=== PATIENT | male | born 1945 | race Caucasian/White ===

== ENCOUNTER 2024-11-24 14:40 | Outpatient (REF) | payer MEDICARE, SELFPAY ==
--- OUTSIDE RECORDS SUMMARY | 2024-11-24 18:05 | XMS_ITS | Encounter Summary ---
Author Name [facility] [place] [facility] [place] Address [address] [place] [address] Care Team Providers Care Airplane Electrician Name Role Phone NATHANIEL SEWELL Primary Care Provider Unavailcourtney e Insurance Providers: All historical and current Section Date Range: From patient's date of to the date document was created. This section includes the names of all active insurance providers for the patient. Insurance Provider Type of Coverage Plan Name Start of Policy Coverage End of Policy Coverage Group Number Member ID Insurance Provider's Telephone Number Policy [place]'s Name Patient's Relationship to Policy [place] MEDICARE (WNR) MEDICARE (M) PART A May 22, 2009 PART A [id number] [id number] [place] PAT[place] MEDICARE (WNR) MEDICARE (M) PART B May 22, 2009 PART B [id number] [id number] [place] PAT[place] Selected Encounter This section includes the information on record at CT for the Encounter. Date/Time Encounter Type Encounter Description Reason Provider Source Mar 08, 2024 09:30 AM COMPRE OPH EXAM NEW PT 1/> OPTOMETRY ICD-10-CM H25.813 Combined forms of age-related cataract, bilateral JULIETKENJI EVANGELISTA E IHE Encounter Template Text not used by VA Assessments - Encounter Diagnoses This section includes the primary and secondary diagnoses documented for the Encounter. Date/Time Primary/Secondary Diagnosis Diagnosis Name Provider Source Mar 08, 2024 03:17 PM PRIMARY Combined forms of age-related cataract, bilateral [facility] Mar 08, 2024 03:17 PM SECONDARY Nexdtve age-related mclr degn, bilateral, intermed dry stage KENJI CHUNG [facility] [place] [facility] Mar 08, 2024 03:17 PM SECONDARY Posterior subcapsular polar age-related cataract, bilateral [facility] Plan of Treatment: Future Appointments (+ 6 months) and Future Tests (+/- 45 days) The Plan of Treatment section includes future care activities for the patient from all CT treatmentfacilities. This section includes future appointments and future orders which are active, pending or scheduled. Future Appointments This section includes appointments that were scheduled to occur 6 months from the date of the Encounter, up to a maximum of 20 appointments. The data comes from all CT treatment facilities. Appointment Date/Time Appointment Type Appointme nt Facility Name Jun 16, 2024 08:30 AM [facility]UL[facility] Aug 05, 2024 08:30 AM [facility] Social History: Smoking Status (Most current) and Tobacco Use (All prior to encounter date) This section includes the most current, and the historical, smoking and tobacco- related health factors from the CT facility where the Encounter took place. Current Smoking Status This section includes the most current smoking, or tobacco-related health factor, from the CT facility where the Encounter took place. Date/Time Current Smoking Status Comment Facil ity Jun 16, 2023 10:13 AM VA-TOBACCO FORMER USER [facility] Tobacco Use History This section includes a history of the smoking, or tobacco-related health factors, that were collected on or before the date of the Encounter. The data comes from the CT facility where the Encounter took place. Date/Time Smoking Status/Tobacco Use Comment F acility Jun 16, 2023 10:[address]-TOBACCO QUIT 15 YRS OR MORE [facility] Encounter Notes: All associated encounter notes This section contains the clinical notes associated to the Encounter. Date/Time Encounter Note(s) Provider Source Mar 08, 2024 03:14 PM OPTOMETRY NOTE: LOCAL TITLE: OPTOMETRY NOTE STANDARD TITLE: OPTOMETRY NOTE DATE OF NOTE: MAR 08, 2024@15:14 ENTRY DATE: MAR 08, 2024@15:14:47 AUTHOR: AMISH CHUNG COSIGNER: URGENCY: STATUS: COMPLETED I saw this patient in conjunction with the student and agree with the stated findings and plan as noted below after reviewing both the history and repeating mendez elements of the physical exam now. Patient previously followed by Dr. Babin at [facility] presents today for comprehensive eye examination. He has a history of bilateral cataracts as well as macular degeneration for which he is taking AREDS 2 twice a day by mouth. 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 Update glasses today. Bilateral intermediate macular degeneration characterized by confluent drusen without evidence of subretinal fluid, subretinal blood, exudate or thickening either eye. Continue AREDS 2 twice a day by mouth. Plan: Patient education as noted above ordered new glasses today. Order ocular supplements for mail out AREDS two 1 capsule twice a day by mouth. Return in 12 months or sooner if need be. Ophthalmic medication reconciliation: The patient is prescribed AREDS two 1 capsule twice a day by mouth. Medication Reconciliation: Outpatient: Has the patient been taking medications as documented in the EMLR? YES: The patient has been taking medications as documented in the EMLR. Essential Medication List for Review used to complete this medication reconciliation. INCLUDED IN THIS LIST: Alphabetical list of active outpatient prescriptions dispensed from this VA (local) and dispensed from another VA or DoD facility (remote) as well as inpatient orders (local, pending and active), local clinic medications, locally documented non-VA medications, and local prescriptions that have or been discontinued in the past 90 days. - All changes in medications, including all non-VA/Herbal/OTC medications were entered into CPRS. Changes: AREDS two 1 capsule twice a day by mouth. - If there were any medications the patient should no longer take, they were discontinued. - The patient/caregiver was instructed to update this list, discard old lists, and take this list to the next appointment, whether with a VA or non-VA provider. JLV Link Data on this list may not be complete. Please check JLV. Allergies/ADRs (Tool #5) FACILITY ALLERGY/ADR -------- No Remote Allergy/ADR Data available for this patient [facility] No Known Allergies Med [facility] (Tool #1) INCLUDED IN THIS LIST: Alphabetical list of active outpatient prescriptions dispensed from this CT (local) and dispensed from another CT or [facility] facility (remote) as well as inpatient orders (local pending and active), local clinic medications, locally documented non-VA medications, and local prescriptions that have or been discontinued in the past 90 days. Non-VA Meds Last Documented On: Jun 16, 2023 NOTE The display of VA prescriptions dispensed from another CT or [facility]D facility (remote) is limited to active outpatient prescription entries matched to National Drug File at the originating site and may not include some items such as investigational drugs, compounds, etc. NOT INCLUDED IN THIS LIST: Medications self-entered by the patient into personal health records (i.e. [employer]) are NOT included in this list. Non-VA medications documented outside this CT, remote inpatient orders (regardless of status) and remote clinic medications are NOT included in this list. The patient and provider must always discuss medications the patient is taking, regardless of where the medication was dispensed or obtained. Non-VA LEVOTHYROXINE NA (SYNTHROID) TAB TAKE BY MOUTH EVERY MORNING 30 MINUTES BEFORE BREAKFAST Indication: FOR THYROID Non-VA LORATADINE 10MG TAB TAKE ONE TABLET BY MOUTH ONCE DAILY Indication: FOR ALLERGY Non-VA MULTIVITAMIN/MINERALS CAP/TAB TAKE ONE TABLET BY MOUTH EVERY MORNING 30 MINUTES BEFORE BREAKFAST Non-VA SILDENAFIL CITRATE 50MG TAB TAKE ONE TABLET BY MOUTH NEEDED Indication: FOR ERECTILE DYSFUNCTION SUPPLIES Declines printed copy of medication list now. /neli/ Amish Chung OD CHIEF OF OPTOMETRY Signed: 03/08/2024 15:19 AMISH CHUNG [facility] [place] [facility] Mar 08, 2024 09:26 AM OPTOMETRY NOTE: LOCAL TITLE: OPTOMETRY NOTE STANDARD TITLE: OPTOMETRY NOTE DATE OF NOTE: MAR 08, 2024@09:26 ENTRY DATE: MAR 08, 2024@09:26:11 AUTHOR: HE ANTHONY EXP COSIGNER: AMISH CHUNG URGENCY: STATUS: COMPLETED Active problems - Computerized Problem List is the source for the followin. Mild cognitive impairment 2. Hypothyroidism Active Outpatient Medications (including Supplies): Active Non-VA Medications Status 1) Non-VA LEVOTHYROXINE NA (SYNTHROID) TAB BY MOUTH ACTIVE 2) Non-VA LORATADINE 10MG TAB 10MG BY MOUTH ONCE DAILY ACTIVE 3) Non-VA MULTIVITAMIN/MINERALS CAP/TAB 1 TABLET BY ACTIVE MOUTH EVERY MORNING 30 MINUTES BEFORE BREAKFAST 4) Non-VA SILDENAFIL CITRATE 50MG TAB 50MG BY MOUTH ACTIVE NEEDED Allergies: Patient has answered NKA All medications including those prescribed by outside VA's, community providers, and all OTC meds were reviewed and reconciled with patient to the best of their abilities. This 78 year old MALE is seen today for CEE - [facility] Babin at [facility], he's been seeing them annually for 5-6 yrs Chief Complaint: -Pt reports that he's using +3.25 OTC readers. He was previously using PALs but broke those. -Pt was seeing Dr. Babin for routine eye care. He was not being followed for any disease that he's aware of, other than the start of cataracts. He does the side vision test periodically with them and he does plan to continue seeing them annually. He also has a consult with them on March 14 for cataract surgery. -Pt says that ~1 yr ago he saw a red spot in his vision that he noticed when he woke up and would last about 5 mins. This happened daily for a few weeks and has since gone away. He brought this up at his [facility] and they didn't find anything concerning to explain the symptom. -Pt reports burning and tearing OU when watching tv. Pt denies use of ATs or warm compress. OHx: -Cataracts -AMD OU -RE OU (-) Pain: (-) VASQUEZ: (-) Diplopia: (+) Flashes: occassional (+) Floaters: occassional, longstanding (-) Amaurosis Fugax/Tia's: (-) Eye Injury: (-) Eye Surgery: (-) TBI FOHx: (-) Glaucoma/ARMD/Blindness (-) Smoker/Length of Time/PPD: VITALS (most recent, as listed in the electronic record): B/P: 128/66 (08/04/2023 08:08) Pulse: 61 (08/04/2023 08:08) Temperature: 97.8 F [36.6 C] (08/04/2023 08:08) Weight: 191 lb [86.64 kg] (08/04/2023 08:08) Height: BMI: BMI: PERTINENT LABS: HEMOGLOBIN A1C TREND No data available Current Rx with last BCVA: OD: OS: Add: -Pt lost current rx from outside provider [facility] ( x )sc ( )cc OD: 20/30+1 OS: 20/25+1 Pupils: PERRL (-)APD EOMs: SAFE OU, (-)Pain/Diplopia CVF (facial, peripheral): FTFC OU Autorefraction: OD: -0.50 -1.50 x085 20/30+1 OS: +0.50 -1.50 x079 20/25+1 Subjective Refraction: OD: -0.25 -0.75 x085 20/30+1 OS: +0.75 -1.00 x080 20/25+1 Add: +2.75 -Order rx s/p CE OU All the above performed by student, reviewed by attending Anterior segment: Performed by student, repeated by attending Lids: mild MGD OU, trace bleph OU Conj: white and quiet OU Cornea: arcus 360 OU AC: deep and quiet OU Iris: flat and clear OU, (-)NVI/TID OU Lens: -OD 2+ NS, 2+ ACC, 1+ psc -OS 1+ NS, 1+ ACC, trace psc Tonometry: Performed by student, reviewed by attending OD 15 mmHg OS 15 mmHg Time: 9:56am Fundus exam: Dilated: 9:58am Dilating Drops: 1GTT 1 % Tropicamide OU & 1GTT 2.5% Phenylephrine OU (Pt. ed. on side effects, dilation warning given and verbal consent obtained) Patient advised not to drive if they feel they have any symptoms which could affect their ability to drive safely. Patient advised not to engage in any activities which could put themselves or others at risk if they feel they have any symptoms which could affect their ability to perform those activities safely. Performed by student, repeated by attending Vit: PVD OU C/D: (-)notching/drance heme/NVD OU -OD: 0.40 -OS: 0.35 Macula: soft confluent drusen OD>OS, (-)SRF/IRF OU,(-)CSME OU PPole: clear, (-)NVE/DBH/CWS/ILANA/exudate s OU A/V: 2/3, (-)venous tortuosity OU Vessels: normal caliber OU Periph: flat and intact, (-)holes, tears, detachments 360 OU, (-)NVE OU Assessment/Plan: 1. Intermediate non-exudative macular degeneration OU - Pt ed on today's findings. Ed on pathophysiology of AMD and visual consequences of disease. - Corrected visual acuity is stable. Pt advised to continue use of HAG and call immediately if noticing any sudden changes in vision. - Advised to continue use of AREDS 2 BID. Monitor annually. 2. Combined Cataracts OU - visually significant OU - Pt ed on today's findings and importance of UV protection. - Pt advised to keep appt for cataract surgery consult next week. - Monitor annually. 3. Regular Astigmatism and Presbyopia OU - New spec rx written for FTW. Deferred ordering glasses today until after cataract surgery. Pt advised to call if he decides not to have the surgery and we will have him come back to pick out glasses. - Monitor annually Return to Clinic 1 yr or sooner prn. Patient Education: Macular Degeneration: Patient was educated regarding macular degeneration including both wet and dry varieties as well as the natural history and prognosis of this condition. Education included the role of amsler grid testing , ocular nutraceutical therapy as well as diet and healthy lifestyle choices when applicable. Exclusion criteria includes extremely reduced acuity or cognitive decline for amsler grid testing and other coexisting systemic contraindication for supplements, diet and exercise. /neli/ HE ANTHONY OPTOMETRY STUDENT Signed: 03/08/2024 17:26 /neli/ Amish Chung OD CHIEF OF OPTOMETRY Cosigned: 03/09/2024 13:43 HE ANTHONY CN[facility]L [facility]
--- OUTSIDE RECORDS SUMMARY | 2024-11-24 18:05 | XMS_ITS ---
Author Name [facility] [place] [facility] [place] [facility] [place] Address [address] [place] [address] Care Team Providers Care Care Worker Name Role Phone NATHANIEL SEWELL Primary Care Provider Yg montoya Insurance Providers: All historical and current Section [...] PART A May 22, 2009 PART A [id number] EX19 [place] PATIENT MEDICARE (WNR) MEDICARE (M) PART B May 22, 2009 PART B [id number] EX19 [place] PAT[place] Selected Encounter This section includes the information on record at [place] for the Encounter. Date/Time Encounter Type Encounter Description Reason Pro vider Source Nov 24, 2024 10:24 AM Outpatient Encounter TELEPHONE TRIAGE IHE Encounter Template Text not used by VA Plan of Treatment: Future Appointments (+ 6 months) and Future Tests (+/- 45 days) The Plan of Treatment section includes future care activities for the patient from all VA treatmentfacilities. This section includes future appointments and future orders which are active, pending or scheduled. Future Appointments This section includes appointments that were scheduled to occur 6 months from the date of the Encounter, up to a maximum of 20 appointments. The data comes from all [place] treatment facilities. Appointment Date/Time Appointment Type Appointme nt Facility Name Nov 29, 2024 09:00 AM AMBULATORY - MEDICINE [facility] Social History: Smoking Status (Most current) and Tobacco Use (All prior to encounter date) This section includes the most current, and the historical, smoking and tobacco- related health factors from the [place] facility where the Encounter took place. Current Smoking Status This section includes the most current smoking, or tobacco-related health factor, from the [place] facility where the Encounter took place. Date/Time Current Smoking Status Comment Facil ity Aug 05, 2024 08:30 AM PA-TOBACCO FORMER USER [facility] Tobacco Use History This section includes a history of the smoking, or tobacco-related health factors, that were collected on or before the date of the Encounter. The data comes from the [place] facility where the Encounter took place. Date/Time Smoking Status/Tobacco Use Comment F acility Aug 05, 2024 08:30 AM VA-TOBACCO QUIT [facility]RS [facility] Jun 16, 2023 10:13 AM VA-TOBACCO [facility] Jun 16, 2023 10:13 AM PA-TOBACCO QUIT 15 YRS OR MORE [facility] Encounter Notes: All associated encounter notes This section contains the clinical notes associated to the Encounter. Date/Time Encounter Note(s) Provider Source Nov 24, 2024 10:24 AM RN PROGRESS NOTE: LOCAL TITLE: CCC: CLINICAL TRIAGE STANDARD TITLE: RN PROGRESS NOTE DATE OF NOTE: NOV 24, 2024@10:24:54 ENTRY DATE: NOV 24, 2024@10:24:55 AUTHOR: MARANDA FELICIANO COSIGNER: URGENCY: STATUS: COMPLETED Patient Demographics Patient Name: HELEN KAYE Patient Primary Address: [address] [place] [id number] Patient Primary Phone: [phone] Patient : 1945 Patient Age: 79 Caller/Recipient Relation to Patient: Self Caller Name: HELEN KAYE Emergency Contact: SANDI KAYE Triage Summary Chief Complaint: Eye Irritation System WHEN: Within 2 Weeks Nurse's Recommendation / WHEN: Within 2 Weeks System WHERE: Clinic Nurse's Recommendation / WHERE: Clinic/[facility] Nursing Plan and Disposition Referred Patient for In-Person Appt Transferred patient to Sched & Admin-Apt Other course(s) of action Generated msg to PACT/Provider Nurse Summary Nurse Summary: States I would like to see an eye doctor, My eye is watery, and feeling like there is something in the left eye. This has been going on half a year . States burning sensation in the evening. SEE ROS. Warm transferred to specialty clinic, advise per triage, pt needs f2f appt within 1-2 weeks. Clinical Contact Center Codes Clinic/Location: V1 CWM PHONE CCC RN Decision Support System Output: Triage Complete Triage Date: 11/24/2024, 10:19 AM Triage Note: Decision Support Tool Used: TXCC Phone Triage Cleo, 24 Nov 2024 15:17:39 +0000 [facility] Demographics 79 y/o Male Results CC: Eye Irritation Software suggested: Within 2 Weeks Software suggested follow-up location: Clinic, consider [facility] care Values and Measures Duration of CC: 6 Months Positive Responses HPI: eyelid drainage, exudative HPI: symptoms, worsening Negative Responses Denies: HPI: eye discharge, exudative Denies: HPI: eye pain Denies: HPI: eye redness Denies: HPI: eyelid erythema Denies: HPI: eyelid swelling Denies: HPI: scaly skin, eyelid IMPORTANT: This note was created by [facility] Clinical Contact Center staff. Please do not alert the staff member by adding them as a signer for future communications. Alerts are not monitored by this user. /neli/ MARANDA FELICIANO RN-BSN REGISTERED NURSE Signed: 11/24/2024 10:24 Receipt Acknowledged By: 11/24/2024 11:12 /neli/ Maria A Willingham RN, BSN Primary Care 11/24/2024 13:30 /neli/ AIDAN GRACE LPN, [facility]
--- OUTSIDE RECORDS SUMMARY | 2024-11-24 18:05 | XMS_ITS | Encounter Summary ---
Author Organization [employer] Address [address] [place] [address] Care Team Providers Care Establishment Guide Name Role Phone Rachael Velasco Primary Care Provider [phone] Encounter Details Date Type Department Care Team (Late st Contact Info) Description 11/02/2024 Telephone Sunday [facility] [address] [place] [address] Rachael Velasco FNP [address] [place] [address] Social History Tobacco Use Types Packs/Day Years Used Date Smoking Tobacco: Former Cigarettes Q uit: 1993 Smokeless Tobacco: Never Alcohol Use Standard Drinks/Week Comments Yes 0 (1 standard drink = 0.6 oz pur e alcohol) 2 a day Housing Stability Answer Date Recorded What is your housing situation today? I have aravind patel 07/29/[address] you li ve. Do you have problems with any of the following? None of the above 07/29/2024 Food Insecurity Answer Date Recorded Within the past 12 months, y ou worried that your food would run out before you got money to buy more: Never True 07/29/2024 Within the past 12 months,th e food you bought just didn't last and you didn't have enough money to get more: Never True 04/2024 Transportation Answer Date Recorded In the past 12 months, has l ack of transportation kept you from medical appts, meetings, work or from getting things needed for daily living? No 07/29/2024 Utilities Answer Date Recorded In the past 12 months, has t he [employer], oil or water [employer] threatened to shut off services in your home? No 07/29/2024 Depression Answer Date Recorded Patient Health Questionnaire-2 Score 1 04/27/2024 Internet Access Answer Date Recorded Internet Access Q1 Yes 07/29/2024 Internet Access Q2 Not on file 07/29/2024 Sex and Gender Information Value Date Recorded Sex Assigned at Male 09/02/2022 11:08 AM EST Legal Sex Male 5:34 PM EDT Gender Identity Male 09/02/2022 11:08 AM EST Sexual Orientation Straight 10/26/2023 9: 33 AM EST Occupation Industry Job Start Date Job End Date Not on file Not on file Not on file Not on file documented as of this encounter Miscellaneous Notes * Telephone Encounter - Cassi Owens LPN - 11/02/2024 2:50 PM EST Signed order faxed to number provided. Alyssia notified. * Telephone Encounter - Cassi Owens LPN - 11/02/2024 2:46 PM EST Images from the original note were not included. Jody Jansen Signed 2:20 PM Copy Alyssia ([facility]) called stating patient is with her trying to get blood work done and they are requesting patient's provider's signature on labs in order to move forward called, Culture for Aerobicbacteria, order code: [id number]. Alyssia states she needs the order with the provider's signature faxed over to [facility] - Fax number: [phone]. Alyssia states she would like a call back once the order has been signed and faxed over at phone number: [phone]. Alyssia states she won't be able to get a voicemail left on the number. Thank you! documented in this encounter Plan of Treatment Not on file documented as of this encounter Visit Diagnoses Not on filedocumented in this encounter Care Teams Establishment Guide Relationship Specialty Start Date End Date Rachael Velasco FNP [address] [place] [address] PCP - General Family Medicine 09/03/22 documented as of this encounter
--- OUTSIDE RECORDS SUMMARY | 2024-11-24 18:05 | XMS_ITS | Encounter Summary ---
Author Name [facility] [place] [facility] [place] [facility] [place] Address [address] [place] [address] Care Team Providers Care Salesperson Driver Name Role Phone NATHANIEL SEWELL Primary Care [...] PART A May 22, 2009 PART A [id number] [facility] PATIENT MEDICARE (WNR) MEDICARE (M) PART B May 22, 2009 PART B [id number] [place] PATIENT Selected Encounter This section includes the information on record at [place] for the Encounter. Date/Time Encounter Type Encounter Description Reason Provider Source Dec 16, 2023 09:00 AM HEARING SERVICE AUDIOLOGY ICD-10-CM Z46.1 Encounter for fitting and adjustment of hearing aid CARLOS SILVESTRE Encounter Template Text not used by [place] Assessments - Encounter Diagnoses This section includes the primary and secondary diagnoses documented for the Encounter. Date/Time Primary/Secondary Diagnosis Diagnosis Name Provider Source Dec 16, 2023 09:41 AM PRIMARY Encounter for fitting and adjustment of hearing aid FERNANDA SILVESTRE [facility] Dec 16, 2023 09:41 AM SECONDARY Sensorineural hearing loss, bilateral FERNANDA SILVESTRE [facility] Plan of Treatment: Future Appointments (+ 6 months) and Future Tests (+/- 45 days) The Plan of Treatment section includes future care activities for the patient [facility] [place] [facility] This section includes future appointments and future orders which are active, pending or scheduled. Future Appointments This section includes appointments that were scheduled to occur 6 months from the date of the Encounter, up to a maximum of 20 appointments. The data comes from all [place] treatment facilities. Appointment Date/Time Appointment Type Appointme nt Facility Name Jan 07, 2024 03:30 PM AMBULATORY - REHAB MEDICIN E [facility] Mar 08, 2024 09:30 AM AMBULATORY - MEDICINE [facility] Jun 16, 2024 08:30 AM AMBULATORY - REHAB MEDICIN E [facility] Social History: Smoking Status (Most current) and Tobacco Use (All prior to encounter date) This section includes the most current, and the historical, smoking and tobacco- related health factors from the [place] facility where the Encounter took place. Current Smoking Status This section includes the most current smoking, or tobacco-related health factor, from the [place] facility where the Encounter took place. Date/Time Current Smoking Status Comment Facil ity Jun 16, 2023 10:13 AM VA-TOBACCO FORMER USER [facility] Tobacco Use History This section includes a history of the smoking, or tobacco-related health factors, that were collected on or before the date of the Encounter. The data comes from the [place] facility where the Encounter took place. Date/Time Smoking Status/Tobacco Use Comment F acility Jun 16, 2023 10:13 AM [place]-TOBACCO QUIT 15 YRS OR MORE [facility] Encounter Notes: All associated encounter notes This section contains the clinical notes associated to the Encounter. Date/Time Encounter Note(s) Provider Source Dec 16, 2023 07:14 AM AUDIOLOGY E & M NOTE: LOCAL TITLE: AUDIOLOGY CLINIC STANDARD TITLE: AUDIOLOGY E & M NOTE DATE OF NOTE: DEC 16, 2023@07:14 ENTRY DATE: DEC 16, 2023@07:14:32 AUTHOR: CARLOS SILVESTRE COSIGNER: URGENCY: STATUS: COMPLETED AUDIOLOGY CLINIC Has ADDENDA Dx CODE: Z46.1- Encounter for Fitting/Programming Hearing Aid(s); H90.3- Sensorineural Hearing Loss, Bilateral APPOINTMENT TYPE: Hearing Aid Fitting SUBJECTIVE (S): The patient was seen for hearing aid fitting and issuance. He had previously been evaluated and found to exhibit significant hearing loss for which amplification was recommended. How does the patient best learn? Verbal instruction, demonstration Does the patient have any cultural and anabaptist beliefs, emotional barriers, physical or cognitive limitations, and communication barriers which may impact his ability to learn? No Desire and motivation to learn? Good OBJECTIVE (O): Physical fit of hearing aids was good. Patient verified comfort. Verification of an appropriate acoustic response was obtained using Real Ear measurements (speech mapping) and NAL-NL2 targets. The patient reported good subjective benefit as well. Feedback mortuary operations manager was run. Hearing aids were found to be meeting targets adequately and MPO was not exceeding estimated UCL. Settings stored in JOANNA. ASSESSMENT (A): The following devices were issued: Make: Oticon Model: Real 1 miniRITE Rechargeable Right Serial Number: [id number] Left Serial Number: [id number] Battery size: RECHARGEABLE Warranty ends: 12/19/26 Trial Period ends: 05/18/24 Domes/Wax guards: 8mm adame dome double vent- right 8mm open dome- left mini Prowax Environmental Field Team Member: Size 3 85 gain Program(s): Automatic Button(s): Short press= synchronous VC via rocker switch Long press= on/off Fitting Formula: NAL-NL2 Remote Programming: HAs are capable [employer]oth: not interested Counseling was completed throughout todays appointment using a standardized curriculum that includes but is not limited to; realistic expectations with amplification in adverse listening environments, acclimatization to own voice and environmental sounds (following real-ear measurements), the importance of consistent use of amplification, proper insertion/removal, care and maintenance (including wax guards/domes if applicable), signal and alerts of devices, and charging/batteries. The was provided the opportunity to practice in office and reports confidence/understanding in all items reviewed. Time Spent= 20 minutes The patient was informed of and signed/agreed to [place] policy on hearing aid issuance: Yes Users are responsible for the maintenance and security of their devices. Determination of need to replace a hearing aid is made by the [place] occupational health and safety officer. Hearing aids will not be replaced in cases of neglect, abuse, or excessive loss. Items issued are for personal use only. Prognosis for successful hearing aid use is good. PLAN (P): 1. Follow-up for programming/adjustments as needed. 2. The International Outcome Inventory-Hearing Aids (IOI-VASQUEZ) will be mailed to the in four weeks. He was asked to complete and mail back to clinic after completion. Patient Education Education provided on the following topics: Hearing aid use, care, maintenance Education provided to: P Response to Education: OMAIRA PEREZ, PI Hunt Patient P Family F Significant Other SO Verbalizes Understanding VU Returns Demonstration RD Performs Independently PI Lacks Comprehension LC Refused Education RE Not Applicable NA /es/ CARLOS SILVESTRE STAFF SVP Signed: 12/16/2023 09:41 02/02/2024 ADDENDUM STATUS: COMPLETED returned IOI-VASQUEZ Outcome Measure to the clinic via mail with an overall score of 30 Based on this score: i. No follow-up call is indicated _XX_ ii. Follow-up call is indicated and fitting clinician will be notified __ /es/ JOE HENNING Audiology Health Livestock Laborer Signed: 02/02/2024 07:54 CARLOS SILVESTRE [facility]
--- OUTSIDE RECORDS SUMMARY | 2024-11-24 18:05 | XMS_ITS | Clinical Summary ---
Author Organization [facility] Address [address] [place] [address] Phone Care Team Providers Care Aluminum Molding Machine Operator Name Role Phone Unavailable Primary Care Provider Unavailabl e Encounters Date Type Department Care Team Description 09/16/2024 9:08 AM EST - 09/16/2024 11:59 PM EST Hospital Encounter [facility] MRI [address] [place] [id number] Pain Discharge Disposition: Home or Self Care from Last 3 Months Social History Tobacco Use Types Packs/Day Years Used Date Smoking Tobacco: Never Assessed Sex and Gender Information Value Date Recorded Sex Assigned at Not on file Legal Sex Male 9:04 AM EST Gender Identity Not on file Sexual Orientation Not on file Plan of Treatment Health Maintenance Due Date Last Done Comments Zoster Vaccines (1 of 2) 09/06/2012 07/12/2012 RSV Immunization Patients 60+ Years Old (1 - 1-dose 75+ series) 2019 Depression Screening 09/16/2024 Falls Risk Assessment 09/16/2024 Social Influencers of Health Screening 09/16/2024 Cholesterol Screening (Lipid Panel) 07/01/2028 07/01/2023 DTaP,Tdap,and Td Vaccines (4 - Td or Tdap) 11/21/2031 11/20/2021, 01/13/2012, 06/17/2007 Pneumococcal Vaccine: 50+ Years Completed 11/02/2023, 01/13/2012 COVID-19 Vaccine Completed 07/29/2024, 04/2023, 01/05/2023, Additional history exists Influenza Vaccine Completed 07/29/2024, , 07/09/2022, Additional history exists HIB Vaccines Aged Out No longer eligi ble based on patient's age to complete this topic HPV Vaccines Aged Out No longer eligi ble based on patient's age to complete this topic Hepatitis A Vaccines Aged Out No long er eligible based on patient's age to complete this topic Hepatitis B Vaccines Aged Out No long er eligible based on patient's age to complete this topic IPV Vaccines Aged Out No longer eligi ble based on patient's age to complete this topic MMR Vaccines Aged Out No longer eligi ble based on patient's age to complete this topic Meningococcal ACWY Vaccine Aged Out N o longer eligible based on patient's age to complete this topic Meningococcal B Vacine Aged Out No lo nger eligible based on patient's age to complete this topic RSV Immunization Patients Under 20 months Aged Out No longer eligible based on patient's age to complete this topic Varicella Vaccines Aged Out No longer eligible based on patient's age to complete this topic Procedures Procedure Name Priority Date/Time Associated Diagnosis Comments MR LUMBAR SPINE WO CONTRAST Routine 09/16/2024 10:02 AM EST Pain from Last 3 Months Results * MR Lumbar Spine wo Contrast (09/16/2024 10:02 AM EST) Anatomical Region Laterality Modality L-spine, Spine Magnetic Resonan ce 09/20/2024 3:54 PM EST Impressions 09/20/2024 4:06 PM EST Acute superior endplate fracture at L4 resulting in approximately 30% height loss. ??No retropulsion of bone towards spinal canal. L3 fracture with evidence of prior vertebral augmentation. Multilevel degenerative changes most pronounced at L2-3 and L3-4 where there is moderate spinal canal stenosis. -------- FINAL REPORT -------- Dictated By: GREGORY PEÑA Dictated Date: 09/20/2024 15:54 ET Assigned Physician: GREGORY PEÑA Reviewed and Electronically Signed By: GREGORY PEÑA Signed Date: 09/20/2024 16:06 ET Workstation ID: [id number] Transcribed By: Self Edit Transcribed Date: 09/20/2024 15:54 ET Narrative 09/20/2024 4:06 PM EST PROCEDURE: Lumbar spine MRI INDICATION: Pain TECHNIQUE: Multiplanar, multisequence MRI of the Lumbar spine Without contrast. COMPARISON: ??No priors available. FINDINGS: Lumbar lordosis is preserved. Vertebral augmentation noted at L3 with marrow edema throughout the L3 vertebral body. Acute L4 superior endplate compression fracture resulting in approximately 30% height loss. ??No retropulsion of bone towards the spinal canal. Conus medullaris is normal and terminates at L1. ??No epidural collection or mass is seen within the spinal canal. Multilevel degenerative loss of normal disc height and signal with associated degenerative endplate spurring. ??Lower lumbar predominant facet arthritis. Paraspinal muscles are within normal limits. ??Visualized intra-abdominal and pelvic structures are normal for colonic diverticulosis. Findings by level: T12-L1: No foraminal or spinal canal stenosis L1-2: Diffuse disc bulge with endplate spurring. ??No foraminal or spinal canal stenosis. L2-3: Diffuse disc bulge with endplate spurring. ??Bilateral facet arthropathy with ligamentum flavum thickening. ??Moderate spinal canal stenosis. ??Mild foraminal stenosis bilaterally. L3-4: Diffuse disc bulge with endplate spurring. ??Bilateral facet arthropathy with ligamentum flavum thickening. ??Moderate spinal canal stenosis. ??Moderate foraminal stenosis bilaterally. L4-5: Bilateral facet arthropathy with ligamentum flavum thickening. ??Diffuse disc bulge with endplate spurring. ??Mild spinal canal stenosis. ??Moderate left greater than right foraminal stenosis. L5-S1: Diffuse disc bulge with small superimposed central protrusion resulting in effacement of the subarticular zones. ??No spinal canal stenosis. ??Bilateral facet arthropathy. ??Moderate foraminal stenosis bilaterally. Procedure Note Gregory Peña MD - 09/20/2024 PROCEDURE: Lumbar spine MRI INDICATION: Pain TECHNIQUE: Multiplanar, multisequence MRI of the Lumbar spine Withoutcontrast. COMPARISON: No priors available. FINDINGS: Lumbar lordosis is preserved. Vertebral augmentation noted at L3 with marrow edema throughout the K0rtphhqxty body. Acute L4 superior endplate compression fracture resulting in [id number]% height loss. No retropulsion of bone towards the spinal canal. Conus medullaris is normal and terminates at L1. No epidural collectionor mass is seen within the spinal canal. Multilevel degenerative loss of normal disc height and signal withassociated degenerative endplate spurring. Lower lumbar predominant facetarthritis. Paraspinal muscles are within normal limits. Visualized intra-abdominaland pelvic structures are normal for colonic diverticulosis. Findings by level: T12-L1: No foraminal or spinal canal stenosis L1-2: Diffuse disc bulge with endplate spurring. No foraminal or spinalcanal stenosis. L2-3: Diffuse disc bulge with endplate spurring. Bilateral facetarthropathy with ligamentum flavum thickening. Moderate spinal canalstenosis. Mild foraminal stenosis bilaterally. L3-4: Diffuse disc bulge with endplate spurring. Bilateral facetarthropathy with ligamentum flavum thickening. Moderate spinal canalstenosis. Moderate foraminal stenosis bilaterally. L4-5: Bilateral facet arthropathy with ligamentum flavum thickening.Diffuse disc bulge with endplate spurring. Mild spinal canal stenosis.Moderate left greater than right foraminal stenosis. L5-S1: Diffuse disc bulge with small superimposed central protrusionresulting in effacement of the subarticular zones. No spinal canalstenosis. Bilateral facet arthropathy. Moderate foraminal stenosisbilaterally. IMPRESSION: Acute superior endplate fracture at L4 resulting in approximately 30%height loss. No retropulsion of bone towards spinal canal. L3 fracture with evidence of prior vertebral augmentation. Multilevel degenerative changes most pronounced at L2-3 and L3-4 wherethere is moderate spinal canal stenosis. -------- FINAL REPORT -------- Dictated By: GREGORY PEÑA Dictated Date: 09/20/2024 15:54 ET Assigned Physician: GREGORY PEÑA Reviewed and Electronically Signed By: GREGORY PEÑA Signed Date: 09/20/2024 16:06 ET Workstation ID: [id number] Transcribed By: Self Edit Transcribed Date: 09/20/2024 15:54 ET Zachary Decker MD IMG MRI PROCEDURES Final Result from Last 3 Months
--- OUTSIDE RECORDS SUMMARY | 2024-11-24 18:05 | XMS_ITS | Encounter Summary ---
Author Organization [employer] Address [address] [place] [address] Care Team Providers Care Collections Technician Name Role Phone Rachael Velasco Primary Care Provider [phone] Encounter Details Date Type Department Care Team (Late st Contact Info) Description 11/23/2024 Orders Only [facility] [address] [place] [address] Rachael Velasco FNP [address] [place] [address] Social History Tobacco Use Types Packs/Day Years [...] the past 12 months, has t he [employer], gas, oil or water company threatened to shut off services in your [...] on file documented as of this encounter Plan of Treatment Not on file documented as of this encounter Procedures Procedure Name Priority Date/Time Associated Diagnosis Comments MRI LUMBAR SPINE WO CONTRAST Routine 10/22/2024 12:41 PM EST documented in this encounter Results * MRI LUMBAR SPINE WO CONTRAST (10/22/2024 12:41 PM EST) Anatomical Region Laterality Modality Magnetic Resonan ce Rachael PRINCE IM MRI PROCEDURES Final Result documented in this encounter Visit Diagnoses Not on filedocumented in this encounter Care Teams Collections Technician Relationship Specialty Start Date End Date Rachael Velasco FNP [address] [place] [address] PCP - General Family Medicine 09/03/22 documented as of this encounter
--- OUTSIDE RECORDS SUMMARY | 2024-11-24 18:05 | XMS_ITS | Encounter Summary ---
Author Organization [employer] Address [address] [facility] [address] [place] [address] Care Team Providers Care Restrooms Or Lounges Maid Name Role Phone Rachael Velasco Primary Care Provider [phone] Reason for Referral * Consultation (Routine) - Pending Review Specialty Diagnoses / Procedures Referred By Contac t Referred To Contact Diagnoses Osteopenia of multiple sites Rachael Velasoc FNP [address] [place], [place] Phone: tel: fax: Abilio Weems MD [address] [facility], [address] [place] [address] Phone: tel: fax: Referral ID Status Reason Start Date Expiration Date Visits Requested Visits Authorized [id number] Pending Review Specialty Services Required 11/01/2024 11/01/2025 1 1 * Consultation (Routine) - Authorized Specialty Diagnoses / Procedures Referred By Contac t Referred To Contact Neurosurgery Diagnoses Closed compression fracture of L3 vertebra, sequela Rachael Velasco FNP [address] [place], [place] Phone: tel: fax: Liam Estevez [address] Phone: tel: fax: Referral ID Status Reason Start Date Expiration Date Visits Requested Visits Authorized [id number] Authorized Specialty Services Required 10/28/2024 10/28/2025 1 1 * Consultation (Routine) - Closed Specialty Diagnoses / Procedures Referred By Natalie segovia Referred To Contact Physical Therapy Diagnoses Closed compression fracture of L3 vertebra, sequela Rachael Velasco FNP [address] [place] [address] Phone: tel: fax: [facility] [place] [address] [place] [address] Phone: tel: fax: Referral ID Status Reason Start Date Expiration Date V isits Requested Visits Authorized [id number] Closed Specialty Services Required 10/28/2024 10/28/2025 1 1 Reason for Visit * Reason Comments Follow-up Encounter Details Date Type Department Care Team (Late st Contact Info) Description 10/28/2024 11:40 AM EST Office Visit Sunday [facility] [address] [place] [address] Rachael Velasco FNP [address] [place] [address] Closed compression fracture of L3 vertebra, sequela (Primary Dx); Osteopenia of multiple sites Social History Tobacco Use Types Packs/Day Years [...] the past 12 months, has t he electric, gas, oil or water company threatened to [...] on file documented as of this encounter Last Filed Vital Signs Vital Sign Reading Time Taken Comments Blood Pressure 122/72 10/28/2024 11:48 AM EST Pulse 60 10/28/2024 11:48 AM EST Temperature - - Respiratory Rate 16 10/28/2024 11:48 AM EST Oxygen Saturation - - Inhaled Oxygen Concentration - - Weight 81 kg (178 lb 9.6 oz) 10/28/2024 11:48 AM EST Height 180.3 cm (5' 11 ) 10/28/2024 11:48 AM EST Body Mass Index 24.91 10/28/2024 11:48 AM EST documented in this encounter Progress Notes * Rachael Velasco, SURESH - 10/28/2024 11:40 AM EST Subjective Ender Cedillo is a 79 y.o. male who presents for: Chief complaint Back pain and follow-up on potential osteomyelitis. History of present illness - Feeling a little better post kyphoplasty, but symptoms worsened again. - Had two kyphoplasty procedures due to compression fractures. - Wearing a TSL brace occasionally, which helps when worn. - Blood cultures drawn at [facility] to check for blood infection; initial results showed no infection, but one test came back positive, likely contamination. - MRI performed,, maybe some edema, so they were counseled on monitoring for signs of osteomyelitis - Back pain somewhat improving. - Concerns about osteopenia, precursor to osteoporosis, with two compression fractures. - Experienced an episode of bowel incontinence, possibly related to gastrointestinal issues, with some blood noted, possibly due to hemorrhoids. - Recent spinal procedure on May 12, 2024, with follow-up for potential osteomyelitis. Past medical history - Osteopenia - Two compression fractures Past surgical history - Kyphoplasty Current medications - Calcium - Vitamin D Lab results - Blood cultures: One test came back positive, likely contamination. No infection confirmed. Secondary test ordered Health Maintenance Topic Date Due Zoster Vaccines (2 of 3) 09/06/2012 RSV Patients and Patients Aged 60 years or older (1 - 1-dose 75+ series) Never done Derm Melanoma Skin Check 03/18/2024 Depression Screening 04/27/2025 Tobacco Screening 07/29/2025 SDOH Screening 07/29/2025 Alcohol/Substance Use Screening 07/29/2025 Lipid Panel 07/01/2028 DTaP/Tdap/Td Vaccines (3 - Td or Tdap) 11/21/2031 Influenza Vaccine Completed Pneumococcal Vaccine: 50+ Years Completed COVID-19 Vaccine Completed RSV under 20 months Aged Out HIB Vaccines Aged Out Hepatitis B Vaccines Aged Out IPV Vaccines Aged Out Hepatitis A Vaccines Aged Out Meningococcal Vaccine Aged Out Rotavirus Vaccines Aged Out HPV Vaccines Aged Out Current Outpatient Medications Medication Sig Dispense Refill ibuprofen 200 MG tablet Take 800 mg by mouth every 8 (eight) hours if needed for mild pain. levothyroxine (Synthroid, Levoxyl) 150 MCG tablet Take 1 tablet (150 mcg) by mouth before breakfastfor 360 doses. /90 days 90 tablet 3 loratadine (Claritin) 10 MG tablet Take 1 tablet by mouth in the morning. Multiple Vitamins-Minerals (CENTRUM SILVER 50+MEN PO) Take 1 tablet by mouth in the morning. Multiple Vitamins-Minerals (PreserVision AREDS 2) capsule Take 1 capsule by mouth 2 times daily. Multiple Vitamins-Minerals (VITEYES AREDS FORMULA/LUTEIN PO) Take by mouth. sildenafil (Viagra) 100 MG tablet Take 1 tablet (100 mg) by mouth if needed each day for erectile dysfunction (take as needed prior to sexual activity) for up to 120 doses. 30 tablet 3 No current facility-administered medications for this visit. PAST MEDICAL, SURGICAL, SOCIAL AND FAMILY HISTORY: Reviewed and updated MEDICATIONS AND ALLERGIES: Reviewed and updated ROS: Ten system review negative, with the exception of those noted in the HPI and A&P PHYSICAL EXAMINATION: GENERAL: Well-appearing male in no acute distress. HEENT: No scleral icterus. Moist mucous membranes. No nasal discharge. PULMONARY: Breathing comfortably on room air. CTAB CARDIAC: RRR MUSCULOSKELETAL: Gait appropriate and symmetric. EXTREMITIES: Warm and well perfused. NEUROLOGIC: Motor function grossly intact. PERTINENT LABORATORY DATA: reviewed PERTINENT IMAGING: Reviewed ASSESSMENT AND PLAN: Assessment - Back pain somewhat improving, likely related to previous compression fractures. - Osteopenia identified, which is a precursor to osteoporosis. - No current evidence of spinal cord compression or epidural abscess. - No blood infection suspected, but rechecking blood cultures for due diligence. - Monitoring for potential osteomyelitis following recent spinal procedure. Plan - Recheck blood culture to confirm the absence of blood infection. If any issues arise during the process, contact the provided cell phone number for assistance. - Resume physical therapy as previously discussed and approved. - Provide detailed information on managing osteopenia, including potential treatment options and lifestyle modifications. - Consult with an instructor ballroom dancing to evaluate the current status of osteopenia and receive recommendations for potential interventions. - Monitor for any symptoms indicative of osteomyelitis over the next 3 to 4 weeks. Report any new or worsening symptoms promptly. - Fax the recent MRI results to the endovascular team to determine if further imaging or follow-up is necessary based on the findings. Appointments - Referral to neurosurgery for consultation. - Referral to physical therapy for back pain management. Problem List Items Addressed This Visit Closed compression fracture of third lumbar vertebra (CMS/HCC) - Primary Overview Relevant Orders Referral to Physical Therapy Referral to Neurosurgery Other Visit Diagnoses Osteopenia of multiple sites Medications Discontinued During This Encounter Medication Reason ketorolac (Acular) 0.5 % ophthalmic solution Therapy completed * Marguerite Thompson LPN - 10/28/2024 11:40 AM EST Imaging report faxed with provider note. documented in this encounter Miscellaneous Notes * Patient Education Note - Rachael Velasco, TEAM TRUCK DRIVER - 10/28/2024 5:01 PM EST Images from the original note were not included. Patient Education Table of Contents Osteopenia To view videos and all your education online visit, [email or web address] or scan this QR code with your smartphone. Access to this content will in one year. Osteopenia Osteopenia is a loss of thickness (density) inside the bones. Another name for osteopenia is low bone mass. Mild osteopenia is a normal part of aging. It is not a disease, and it does not cause symptoms. However, if you have osteopenia and continue to lose bone mass, you could develop a condition that causes the bones to become thin and break more easily (osteoporosis). Osteoporosis can cause you to lose some height, have back pain, and have a stooped posture. Although osteopenia is not a disease, making changes to your lifestyle and diet can help to prevent osteopenia from developing into osteoporosis. What are the causes? Osteopenia is caused by loss of calcium in the bones. Bones are constantly changing. Old bone cellsare continually being replaced with new bone cells. This process builds new bone. The mineral calcium is needed to build new bone and maintain bone density. Bone density is usually highest around age 35. After that, most people's bodies cannot replace all the bone they have lost with new bone. What increases the risk? You are more likely to develop this condition if: You are older than age 50. You are a woman who went through menopause early. You have a long illness that keeps you in bed. You do not get enough exercise. You lack certain nutrients (malnutrition). You have an overactive thyroid gland (hyperthyroidism). You use products that contain nicotine or tobacco, such as cigarettes, e- cigarettes and chewing tobacco, or you drink a lot of alcohol. You are taking medicines that weaken the bones, such as steroids. What are the signs or symptoms? This condition does not cause any symptoms. You may have a slightly higher risk for bone breaks (fractures), so getting fractures more easily than normal may be an indication of osteopenia. How is this diagnosed? This condition may be diagnosed based on an X-ray exam that measures bone density (dual-energy X-ray absorptiometry, or DEXA). This test can measure bone density in your hips, spine, and wrists. Osteopenia has no symptoms, so this condition is usually diagnosed after a routine bone density screening test is done for osteoporosis. This routine screening is usually done for: Women who are age 65 or older. Men who are age 70 or older. If you have risk factors for osteopenia, you may have the screening test at an earlier age. How is this treated? Making dietary and lifestyle changes can lower your risk for osteoporosis. If you have severe osteopenia that is close to becoming osteoporosis, this condition can be treatedwith medicines and dietary supplements such as calcium and vitamin D. These supplements help to rebuild bone density. Follow these instructions at home: Eating and drinking Eat a diet that is high in calcium and vitamin D. Calcium is found in dairy products, beans, salmon, and leafy green vegetables like spinach and broccoli. Look for foods that have vitamin D and calcium added to them (fortified foods), such as orange juice, cereal, and bread. Lifestyle Do 30 minutes or more of a weight-bearing exercise every day, such as walking, jogging, or playing a sport. These types of exercises strengthen the bones. Do not use any products that contain nicotine or tobacco, such as cigarettes, e- cigarettes, and chewing tobacco. If you need help quitting, ask your health care provider. Do not drink alcohol if: ? Your health care provider tells you not to drink. ? You are , may be , or are planning to become . If you drink alcohol: ? Limit how much you use to: ? 0?1 drink a day for women. ? 0?2 drinks a day for men. ? Be aware of how much alcohol is in your drink. In the [place] one drink equals one 12 oz bottle of beer (355 mL), one 5 oz glass of wine (148 mL), or one 1? oz glass of hard liquor (44 mL). General instructions Take [id number] and prescription medicines only as told by your health care provider. These include vitamins and supplements. Take precautions at home to lower your risk of falling, such as: ? Keeping rooms well-lit and free of clutter, such as cords. ? Installing safety rails on stairs. ? Using rubber mats in the bathroom or other areas that are often wet or slippery. Keep all follow-up visits. This is important. Contact a health care provider if: You have not had a bone density screening for osteoporosis and you are: ? A woman who is age 65 or older. ? A man who is age 70 or older. You are a postmenopausal woman who has not had a bone density screening for osteoporosis. You are older than age 50 and you want to know if you should have bone density screening for osteoporosis. Summary Osteopenia is a loss of thickness (density) inside the bones. Another name for osteopenia is low bone mass. Osteopenia is not a disease, but it may increase your risk for a condition that causes the bones tobecome thin and break more easily (osteoporosis). You may be at risk for osteopenia if you are older than age 50 or if you are a woman who went through early menopause. Osteopenia does not cause any symptoms, but it can be diagnosed with a bone density screening test. Dietary and lifestyle changes are the first treatment for osteopenia. These may lower your risk forosteoporosis. This information is not intended to replace advice given to you by your health care provider. Make sure you discuss any questions you have with your health care provider. Document Released: 2018-06-16 Document Updated: 2024-05-24 Document Reviewed: 2024-05-24 [employer] Patient Education ? 2023 [employer] documented in this encounter Plan of Treatment Scheduled Referrals Name Type Priority Associated Diagnoses Order Schedule Referral to Neurosurgery Outpatient Referral Routine Closed compression fracture of L3 vertebra, sequela Expected: 10/28/2024 (Approximate), Expires: 10/28/2025 Referral to Endocrinology Outpatient Referral Routine Osteopenia of multiple sites Expected: 11/01/2024 (Approximate), Expires: 11/01/2025 documented as of this encounter Procedures Procedure Name Priority Date/Time Associated Diagnosis Comments AMB REFERRAL TO PHYSICAL THERAPY Routine 11/17/2024 Closed compression fracture of L3 vertebra, sequela documented in this encounter Results * Referral to Physical Therapy (11/17/2024) us Rachael PRINCE OUTPATIENT REFERRAL ORDER ELADIO Final Result documented in this encounter Visit Diagnoses Diagnosis Closed compression fracture of L3 vertebra, sequela- Primary Osteopenia of multiple sites documented in this encounter Care Teams Restrooms Or Lounges Maid Relationship Specialty Start Date End Date Rachael Velasco FNP [address] [facility] [place] [address] PCP - General Family Medicine 09/03/22 documented as of this encounter
--- OUTSIDE RECORDS SUMMARY | 2024-11-24 18:05 | XMS_ITS ---
Author Name [facility] Organization [facility] [place] Address [address] [place] [id number] Care Team Providers Care Carrier Operator Name Role Phone KEN VICENTE Primary Care Provider Unavailabl e Insurance Providers: All historical and current [...] PART A May 22, 2009 PART A [id number] [place] PATIENT MEDICARE (WNR) MEDICARE (M) PART B May 22, 2009 PART B [id number] [id number] [place] PATIENT Selected Encounter This section includes the information on record at [place] for the Encounter. 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 Date/Time Primary/Secondary Diagnosis Diagnosis Name Provider Source Aug 05, 2024 08:56 AM PRIMARY Ototoxic hearing loss, unspecified ear KEN VICENTE [facility] Vital Signs: All taken on the encounter date This section contains inpatient and outpatient Vital Signs collected on the date of the Encounter. Date/Time Temperature Pulse Blood Pressure Respiratory Rate SP02 Pain Height Weight Body Mass Index Source Aug 05, 2024 08:52 AM 137/77 [facility] Aug 05, 2024 08:32 AM 97.9 59 154/80 16 100 3 71 184.6 26 [facility] Social History: Smoking Status (Most current) and Tobacco Use (All prior to encounter date) This section includes the most current, and the historical, smoking and tobacco- related health factors from the [place] facility where the Encounter took place. Current Smoking Status This section includes the most current smoking, or tobacco-related health factor, from the [place] facility where the Encounter took place. Date/Time Current Smoking Status Comment Facil ity Aug 05, 2024 08:30 AM IN-TOBACCO FORMER USER [facility] Tobacco Use History This section includes a history of the smoking, or tobacco-related health factors, that were collected on or before the date of the Encounter. The data comes from the [place] facility where the Encounter took place. Date/Time Smoking Status/Tobacco Use Comment F acility Aug 05, 2024 08:30 AM IN-TOBACCO QUIT 15 YRS OR MORE [facility] Jun 16, 2023 10:13 AM IN-TOBACCO [facility] Jun 16, 2023 10:13 AM IN-TOBACCO QUIT 15 YRS OR MORE [facility] Encounter Notes: All associated encounter notes This section contains the clinical notes associated to the Encounter. Date/Time Encounter Note(s) Provider Source Aug 05, 2024 08:52 AM PHYSICIAN NOTE: LOCAL TITLE: NOTE STANDARD TITLE: PHYSICIAN NOTE DATE OF NOTE: AUG 05, 2024@08:52 ENTRY DATE: AUG 05, 2024@08:52:45 AUTHOR: KEN VICENTE EXP COSIGNER: URGENCY: STATUS: COMPLETED Patient Name: HELEN KAYE VITALS: Patient temperature: 97.9 F [36.6 C] (08/05/2024 08:32) Blood pressure: 137/77 (08/05/2024 08:52) Patient height: 71 in [180.3 cm] (08/05/2024 08:32) Patient weight: 184.6 lb [83.73 kg] (08/05/2024 08:32) Patient BMI: BMI: 25.8 Patient pulse: 59 (08/05/2024 08:32) Patient respiration: 16 (08/05/2024 08:32) Patient Pulse Oximetry: 100% (08/05/2024 08:32) Pain Ratin (08/05/2024 08:32) Active [facility] Medications: Active Outpatient Medications (including Supplies): Active Outpatient Medications Status 1) MULTIVIT/OPHTH AREDS2/LUTE/ZEAX CAP/TAB TAKE 1 ACTIVE CAPSULE BY MOUTH TWICE DAILY FOR VITAMIN SUPPLEMENTATION IN THE MORNING AND EVENING, WITH FOOD Active Non-VA Medications Status 1) Non-VA LEVOTHYROXINE NA (SYNTHROID) TAB BY MOUTH ACTIVE 2) Non-VA LORATADINE 10MG TAB 10MG BY MOUTH ONCE DAILY ACTIVE 3) Non-VA MULTIVITAMIN/MINERALS CAP/TAB 1 TABLET BY ACTIVE MOUTH EVERY MORNING 30 MINUTES BEFORE BREAKFAST 4) Non-VA SILDENAFIL CITRATE 50MG TAB 50MG BY MOUTH ACTIVE NEEDED 5 Total Medications Remote Medications: No Active 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 He feels well today with no complaints. His hearing is satisfactory Physical examination Well-developed well-nourished male no acute distress Ears no cerumen or erythema Assessment and plan: 1. Hard of hearing: Followed by audiology Plan: Continue above Follow-up 1 year Patient declined all vaccines today Toxic Exposure Screening: The /caregiver was asked if they believe the experienced any toxic exposure(s), such as Airborne Hazards and Open Burn Pit, [place] War related exposures, Agent Ovando, Radiation, contaminated water at [employer] or other such exposures, while serving in the Armed Forces. [place] has no concerns about toxic exposure(s) while serving in the Armed Forces. The /caregiver was informed that we will continue to ask this screening question every 5 years. They can contact their provider/healthcare team if they have concerns about exposures and would like to be screened sooner. Printed information was offered and provided if desired. Pneumococcal Conjugate Vaccine (PCV15/PCV20): Refuses PCV vaccine Immunization: PNEUMOCOCCAL CONJUGATE, UNSPECIFIED FORMULATION Refusal Reason: PATIENT DECISION Patient refuses all immunization(s) in the PneumoPCV group Date Documented: 08/05/24 08:54 Influenza Immunization: Deferral / Refusal The patient declines to receive the recommended dose of seasonal influenza vaccine. Immunization: INFLUENZA, UNSPECIFIED FORMULATION Refusal Reason: PATIENT DECISION Patient refuses all immunization(s) in the FLU group Date Documented: 08/05/24 08:54 Medication Reconciliation: Outpatient: Has the patient been [...] all non-VA/Herbal/OTC medications were entered into [facility]. - If there were any medications the patient should no longer take, they were discontinued. - The patient/caregiver was instructed to update this list, discard old lists, and take this list to the next appointment, whether with a VA or non-VA provider. COVID-19 Immunization: Refused Moderna Monovalent COVID-19 vaccine Immunization: COVID-19 (MODERNA), MRNA, LNP-S, PF, 50 MCG/0.5 ML (AGES 12+ YEARS) Refusal Reason: PATIENT DECISION Patient refuses all immunization(s) in the COVID-19 group Date Documented: 08/05/24 08:55 Tdap Immunization: The patient declines to receive the recommended dose of Tdap vaccine. Immunization: TDAP Refusal Reason: PATIENT DECISION Patient refuses all immunization(s) in the TDAP group Date Documented: 08/05/24 08:55 Herpes Zoster (Shingles) Vaccine: The patient declines to receive the recommended dose of zoster (shingles) vaccine. Immunization: ZOSTER RECOMBINANT Refusal Reason: PATIENT DECISION Patient refuses all immunization(s) in the ZOSTER group Date Documented: 08/05/24 08:55 /neli/ Ken Vicente MD Staff Physician Signed: 08/05/2024 08:56 KEN VICENTE IN [facility] Aug 05, 2024 08:37 AM PREVENTIVE MEDICINE NURSING NOTE: LOCAL TITLE: CLINICAL REMINDERS/NURSING STANDARD TITLE: PREVENTIVE MEDICINE NURSING NOTE DATE OF NOTE: AUG 05, 2024@08:37 ENTRY DATE: AUG 05, 2024@08:37:31 AUTHOR: MARY JO YUN EXP COSIGNER: URGENCY: STATUS: COMPLETED Homelessness/Food Insecurity Screen: In the past 2 months, have you been living in stable housing that you own, rent, or stay in as part of a household? Yes - Living in stable housing. Are you worried or concerned that in the next 2 months you may NOT have stable housing that you own, rent, or stay in as part of a household? No - Not worried about housing near future The [place] reports the following: Within the past 12 months, you worried whether your food would run out before you got money to buy more. Never true Within the past 12 months, the food you bought just didn't last and you didn't have money to get more. Never true Depression Screening: Perform PHQ-2 A PHQ-2 screen was performed. The score was 2 which is a negative screen for depression. Over the past two weeks, how often have you been bothered by the following problems? 1. Little interest or pleasure in doing things Several days 2. Feeling down, depressed, or hopeless Several days Suicide Screen: C-SSRS Screening [place] Suicide Severity Rating Scale (C-SSRS) screener 1. Over the past month, have you wished you were or wished you could go to sleep and not wake up? No 2. Over the past month, have you had any actual thoughts of killing yourself? No 3. Over the past month, have you been thinking about how you might do this? Response not required due to responses to other questions. 4. Over the past month, have you had these thoughts and had some intention of acting on them? Response not required due to responses to other questions. 5. Over the past month, have you started to work out or worked out the details of how to kill yourself? Response not required due to responses to other questions. 6. If yes, at any time in the past month did you intend to carry out this plan? Response not required due to responses to other questions. 7. In your lifetime, have you ever done anything, started to do anything, or prepared to do anything to end your life (for example, collected pills, obtained a gun, gave away valuables, went to the roof but didn't jump)? No 8. If YES, was this within the past 3 months? Response not required due to responses to other questions. Falls & Incontinence Screen: Falls Screen: During the past 12 months, did the patient report any falls? 3. At least one fall with injury requiring treatment (in ED or clinic visit). Incontinence Screen: During the past 12 months, has the patient has any characteristics of incontinence (ability, voiding, leakage, etc.)? No incontinence. Tobacco Use Screening: The patient is a former tobacco user. The patient quit fifteen or more years ago. Alcohol Use Screen (AUDIT-C): Alcohol Screen: SCREEN FOR ALCOHOL (AUDIT-C) An alcohol screening test (AUDIT-C) was negative (score=4). 1. How often did you have a drink containing alcohol in the past year? Consider a drink to be a 12 ounce can or bottle of regular beer, 8 ounces of malt liquor, a 5 ounce glass of table wine, or a 1.5 ounce shot of liquor (like scotch, gin, or vodka). Four or more times a week 2. How many drinks containing alcohol did you have on a typical day when you were drinking in the past year? One or two drinks 3. How often did you have six or more drinks on one occasion in the past year? Never Sexual Orientation: The patient thinks of their sexual orientation as: Straight or Heterosexual (Optional) Whole Health Documentation: What matters the most to you? What motivates you to be healthy? (MAP) Response: I want to be well Advance Directive Screen MH AD: Patient has an up-to-date Advance Directive at an outside, non-va facility and was asked to forward a copy to his/her clinician. Comment: will get a copy to this [place] // MARY JO YUN LPN LPN Signed: 08/05/2024 08:43 MARY JO YUN IN [facility]
--- OUTSIDE RECORDS SUMMARY | 2024-11-24 18:05 | XMS_ITS | Encounter Summary ---
Author Organization [employer] Address [address] [place] [address] Care Team Providers Care Urology Surgeon Name Role Phone Rachael Velasco Primary Care Provider [phone] Encounter Details Date Type Department Care Team (Late st Contact Info) Description 10/25/2024 Tatiana Brand [facility] [address] [place] [address] Rachael Velasco FNP [address] [place] [address] Acquired hypothyroidism Social History Tobacco Use Types Packs/Day Years [...] encounter Miscellaneous Notes * Telephone Encounter - Rickey Jimenez CMA - 10/25/2024 9:20 AM EST Most recent TSH 04/2024 - 1.580 * Telephone Encounter - Marguerite Thompson LPN - 10/25/2024 9:11 AM EST Patient requesting refill of Levothyroxine 150 mcg documented in this encounter Plan of Treatment Not on file documented as of this encounter Visit Diagnoses Diagnosis Acquired hypothyroidism Unspecified hypothyroidism documented in this encounter Care Teams Urology Surgeon Relationship Specialty Start Date End Date Rachael Velasco FNP [address] [place] [id number] PCP - General Family Medicine 09/03/22 documented as of this encounter
--- OUTSIDE RECORDS SUMMARY | 2024-11-24 18:05 | XMS_ITS | Encounter Summary ---
Author Organization [employer] Address [address] [place] [address] Care Team Providers Care Director Cardiac Name Role Phone Rachael Velasco Primary Care Provider [phone] Encounter Details Date Type Department Care Team (Latest Contact Info) Description 04/22/2019 Abstract [facility] CONVERSIONS Dental, Provider, DDS Social History Tobacco Use Types Packs/Day Years Used Date Smoking Tobacco: Never Assessed Sex and Gender Information Value Date Recorded Sex Assigned at Male 09/02/2022 11:08 AM EST Legal Sex Male 5:34 PM EDT Gender Identity Male 09/02/2022 11:08 AM EST Sexual Orientation Straight 10/26/2023 9: 33 AM EST documented as of this encounter Plan of Treatment Not on file documented as of this encounter Visit Diagnoses Not on filedocumented in this encounter Care Teams Director Cardiac Relationship Specialty Start Date End Date Rachael Velasco FNP [address] [place] [address] PCP - General Family Medicine 09/03/22 documented as of this encounter
--- OUTSIDE RECORDS SUMMARY | 2024-11-24 18:05 | XMS_ITS | Clinical Summary ---
Author Organization [employer] Address [address] [facility] [address] [place] [address] Care Team Providers Care Wink Cutter Operator Name Role Phone Rachael Velasco OVEN BAKER Primary Care Provider [phone] Allergies No known active allergies Medications Multiple Vitamins-Minerals (CENTRUM SILVER 50+MEN PO) Take 1 tablet by mouth in the morning. Active loratadine (Claritin) 10 MG tablet Take 1 tablet by mouth in the morning. Active sildenafil (Viagra) 100 MG tabletIndications: Erectile Dysfunction Take 1 tablet (100 mg) by mouth if needed each day for erectile dysfunction (take as needed prior to sexual activity) for up to 120 doses. 30 tablet 3 10/21/19 24 Active Multiple Vitamins-Minerals (VITEYES AREDS FORMULA/LUTEIN PO) Take by mouth. 0 24 Active ibuprofen 200 MG tablet Take 800 mg by mouth every 8 (eight) hours if needed for mild pain. Active Multiple Vitamins-Minerals (PreserVision AREDS 2) capsule Take 1 capsule by mouth 2 times daily. Active levothyroxine (Synthroid, Levoxyl) 150 MCG tabletIndications: Acquired hypothyroidism Take 1 tablet (150 mcg) by mouth before breakfast for 360 doses. /90 days 90 tablet 3 10/25/19 25 026 Active ketorolac (Acular) 0.5 % ophthalmic solution INSTILL 1 DROP IN RIGHT EYE THREE TIMES DAILY. START 2 DAYS BEFORE SURGERY 05/25/20 24 025 Discontin ued(Thera py completed ) Active Problems Problem Noted Date Diagnosed Date Urinary frequency 07/29/2024 Overview (07/29/2024): Patient reports ongoing urinary frequency since compression fracture. Normal UA in clinic today. We will refer to neurosurgery. Closed compression fracture of third lumbar vert ebra 07/29/2024 Overview (07/29/2024): Images from the original note were not included. MRI results 07/23/24: Patient has been unable to get in touch with PSS but has a follow-up on 08/11. Also has consult for kyphoplasty 08/02. He continues to experience pain and change in energy levels since injury. No saddle paraesthesia or incontinence, but has had increased frequency of urination since injury. We will refer to neurosurgery. Reviewed reasons to seek emergency care. Non-seasonal allergic rhinitis 09/02/2022 Insomnia 09/02/2022 Acquired hypothyroidism 09/02/2022 Overview (11/02/2023): Stable on current dosing will recheck TSH Assessment & Plan (06/17/2023 9:11 AM EDT): Last TSH 1.7 in Sep, due for repeat, orders placed Mixed hyperlipidemia 09/02/2022 Assessment & Plan (04/28/2024 12:36 PM EDT): Overdue for labs, nonfasting today, lab orders placed Assessment & Plan (06/17/2023 9:09 AM EDT): Overdue for labs, nonfasting today, lab orders placed SK (seborrheic keratosis) 09/02/2022 Decreased hearing of both ears 09/02/2022 Erectile dysfunction 09/02/2022 Gross hematuria 09/02/2022 MGUS (monoclonal gammopathy of unknown significa nce) 09/02/2022 Overview (11/02/2023): Last visit 10/[address] Isaac: Ender Cedillo is a 78 y.o. male with mild MGUS during a workup for anemia in July 2018. Anemia has since resolved.. No evidence of endorgan damage. Monoclonal protein studies are still pending from today CBC is back without evidence of anemia. At this point we decided to follow-up on an annual basis is fine we will do labs prior. Assessment & Plan (06/17/2023 9:10 AM EDT): Regularly sees Dr. Isaac, Q6 months, last visit March, no changes to current plan Milia 09/02/2022 Perforated appendicitis 09/02/2022 Phlebitis 09/02/2022 Rash 09/02/2022 Renal stones 09/02/2022 S/P appendectomy 09/02/2022 Smell or taste sensation disturbance 09/02/2022 Urine cytology abnormal 09/02/2022 Basal cell carcinoma (BCC) 09/02/2022 Benign lipomatous neoplasm o f skin and subcutaneous tissue of right leg 09/02/2022 Benign nevus of skin 09/02/2022 Chronic cough 04/06/2020 Overview (11/02/2023): Stable at this time, currently well controlled, likely caused by GERD symptoms Anemia 08/04/2018 Overview (11/02/2023): See MGUS Assessment & Plan (06/17/2023 9:10 AM EDT): Dr. Isaac Q6 months, labs in February, March visit Acute bilateral low back pain without sciatica 0 04/01/2018 Encounters Date Type Department Care Team Description 11/23/2024 Orders Only [facility] Information Management [address] [place] [address] Rachael Velasco FNP 11/04/2024 Telephone [facility] MEDICAL [address] [place] [address] Smitha Beltran, ELIZABETH 11/02/2024 Telephone [facility] [address] [place] [address] Rachael Velasco FNP 10/28/2024 11:40 AM EST Office Visit [facility] [address] [place] [address] Rachael Velasco FNP Closed compression fracture of L3 vertebra, sequela (Primary Dx); Osteopenia of multiple sites 10/27/2024 Telephone [facility] [address] [place] [address] Rachael Velasco FNP 10/25/2024 Refill [facility] [address] [facility] [place] [address] Rachael Velasco FNP Acquired hypothyroidism 10/25/2024 Orders Only [facility] Information [facility] [address] [facility] [place] [address] Rachael Velasco FNP 10/24/2024 Orders Only [facility] Information Management [address] [facility] [place] [address] Rachael Velasco FNP 10/24/2024 Telephone [facility] [address] [place] [address] Rachael Velasco FNP Care Coordination; Hospital Follow-up 09/06/2024 Telephone [facility] [address] [place] [address] Rachael Velasco FNP Back brace 08/30/[address] [place] [address] Rachael Velasco FNP from Last 3 Months Immunizations Name Administration Dates Next Due Influenza High-dose Quadriva lent Preservative Free 06/08/2023 Influenza, High Dose Seasona l, Preservative Free 06/14/2021 Influenza, IIV3, injectable 07/09/2022,0 06/14/2020,06/26/2016,07/12 Influenza, Split (incl. laura fied surface antigen) 10/12/2012 Influenza, trivalent, adjuvanted 07/29/2024 Moderna Covid-19 Vaccine 12+ 07/29/2024,08/29/20 21 Moderna Covid-19 Vaccine 6+ Bivalent 01/05/2023 Pfizer Covid-19 Vaccine 12+ 08/29/2021, 1,10/23/2020 Pfizer Covid-19 Vaccine 12+ jenn-sucrose (Briceño Cap) 01/22/2022 Pneumococcal Conjugate PCV 20 11/02/2023 Pneumococcal Polysaccharide PPSV23 01/13/2012 TD (adult), 2 Lf tetanus tox oid, preservative free, adsorbed 06/17/2007 Tdap 11/20/2021,01/13/2012 Zoster, live 07/12/2012 Family History Medical History Relation Name Comments No Known Problems Brother 1 No Known Problems Brother 2 MVA Brother 3 22 yrs , MVA Stroke, pacemaker, Hydroceph alus age 67, diagnosed with Coronary artery disease (CAD), Cerebrovascular accident NOS Father 76 yrs Mother of AMI age 72, h x of Alcohol, diagnosed with Substance abuse, daily use Mother 72 yrs No Known Problems Son 1 No Known Problems Son 2 No Known Problems Son 3 Relation Name Status Comments Brother 1 Alive Brother 2 Alive Brother 3 Father Mother Son 1 Alive Son 2 Alive Son 3 Alive Social History Tobacco Use Types Packs/Day Years Used Date Smoking Tobacco: Former Cigarettes Q uit: 1993 Smokeless Tobacco: Never Tobacco Cessation:Counseling Given: Not Answered Alcohol Use Standard Drinks/Week Comments Yes 0 [...] file Not on file Not on file Last Filed Vital Signs Vital Sign Reading Time Taken Comments Blood Pressure 122/72 10/28/2024 11:48 AM EST Pulse 60 10/28/2024 11:48 AM EST Temperature 36.5 ??C (97.7 ??F) 07/29/2024 10:[address] Respiratory Rate 16 10/28/2024 11:48 AM EST Oxygen Saturation 97% 07/09/2022 11:00 AM EDT Inhaled Oxygen Concentration - - Weight 81 kg (178 lb 9.6 oz) 10/28/2024 11:48 AM EST Height 180.3 cm (5' 11 ) 10/28/2024 11:48 AM EST Body Mass Index 24.91 10/28/2024 11:48 AM EST Plan of Treatment Health Maintenance Due Date Last Done Comments Zoster Vaccines (2 of 3) 09/06/2012 07/12/2012 RSV Patients and Patients Aged 60 years or older (1 - 1-dose 75+ series) 2019 Derm Melanoma Skin Check 03/18/2024 09/17/2023 Depression Screening 04/27/2025 04/27/2024, 04/27/20 Alcohol/Substance Use Screening 07/29/2025 07/29/2024 SDOH Screening 07/29/2025 07/29/2024 Tobacco Screening 07/29/2025 07/29/2024 Lipid Panel 07/01/2028 07/01/2023, 03/0 10/2021, 11/20/2021 DTaP/Tdap/Td Vaccines (3 - Td or Tdap) 11/21/2031 11/20/2021, 01/13/2012, [...] patient's age to complete this topic Meningococcal Vaccine Aged Out No chucho demetria eligible based on patient's age to complete this topic RSV under 20 months Aged Out No longe r eligible based on patient's age to complete this topic Rotavirus Vaccines Aged Out No longer eligible based on patient's age to complete this topic Procedures Procedure Name Priority Date/Time Associated Diagnosis Comments AMB REFERRAL TO PHYSICAL THERAPY Routine 11/17/2024 Closed compression fracture of L3 vertebra, sequela CULTURE, AEROBIC BACTERIA Routine 11/05/2024 Positive blood cultures AMB REFERRAL TO DERMATOLOGY Routine 10/25/2024 Basal cell carcinoma (BCC) MRI LUMBAR SPINE WO CONTRAST Routine 10/22/2024 12:41 PM EST COMPREHENSIVE METABOLIC PANEL Routine 10/21/2024 4:27 PM EST BLOOD CULTURE Routine 10/21/2024 9:06 AM EST BD DEXA AXIAL Routine 09/27/2024 Closed compression fracture of L3 vertebra, sequela AMB REFERRAL TO VASCULAR SURGERY Routine 09/23/2024 Pain in both feet LIPID PANEL, STANDARD Routine 07/01/2023 8:38 AM EDT Mixed hyperlipidemia from Last 3 Months or Most Recently Relevant to Health Maintenance Results * Referral to Physical Therapy (11/17/2024) Rachael Velasco [facility] OUTPATIENT REFERRAL ORDER ELADIO Final Result * Culture, Aerobic Bacteria (11/05/2024) Blood Topography unknown / Unknown Rachael Velasco [facility] LAB MICROBIOLOGY - GENERA L ORDERABLES Final Result [facility] [address] [place] [address], [place] [phone] * Referral to Dermatology (10/25/2024) Result [facility] OUTPATIENT REFERRAL ORDER ELADIO Final Result * MRI LUMBAR SPINE WO CONTRAST (10/22/2024 12:41 PM EST) Anatomical Region Laterality Modality Magnetic Resonan ce [facility] IMG MRI PROCEDURES Final Result * Comprehensive Metabolic Panel (10/21/2024 4:27 PM EST) Blood Venous blood specimen / Unknown Result [facility] LAB BLOOD ORDERABLES Deidre l Result * Blood culture (10/21/2024 9:06 AM EST) Blood Venous blood specimen / Unknown [facility] LAB MICROBIOLOGY - GENERA L ORDERABLES Final Result * BD DEXA Axial (09/27/2024) Anatomical Region Laterality Modality Body [facility] Final Result * Referral to Vascular Surgery (09/23/2024) [facility] OUTPATIENT REFERRAL ORDER ELADIO Edited Result - Final * (ABNORMAL) Lipid panel (07/01/2023 8:38 AM EDT) [facility] Signature Cholesterol, Total 216(H) (<200) MG/DL [facility] Triglyceride (mg/dL) in Serum/Plasma 100 (<150) MG/DL [facility] HDL Cholesterol 60 (>39) MG/DL [facility] LDL Cholesterol, Calculated 136(H) (0-130) MG/DL [facility] Non HDL Chol. (LDL+VLDL) 156 (<160) MG/DL [facility] Comment: Testing performed or reported by [facility], a Service of [facility], [address] [place] [id number] Ronald Dodd MD, Cable Tender JOHN# [id number] Blood Venous blood specimen / Unknown 07/01/2023 8:38 AM EDT 07/01/2023 8:39 AM EDT Rachael Velasco OVEN BAKER LAB BLOOD ORDERABLES Deidre ward Result [facility] [address] [place] [id number] from Last 3 Months or Most Recently Relevant to Health Maintenance Insurance [employer] P[employer]ED [employer] * Guarantor: Ender Cedillo Account Type Relation to Patient Date of Phone Billing Address Dental Self Care Teams Wink Cutter Operator Relationship Specialty Start Date End Date Rachael Velasco FNP [address] [place] [address] PCP - General Family Medicine 09/03/22
--- OUTSIDE RECORDS SUMMARY | 2024-11-24 18:05 | XMS_ITS | Encounter Summary ---
Author Name [employer] Organization [employer] Address [address] [place] [id number] Care Team Providers Care Project Leader Name Role Phone NATHANIEL SEWELL Primary Care [...] PART A May 22, 2009 PART A [id number] [facility] PATIENT MEDICARE (WNR) MEDICARE (M) PART B May 22, 2009 PART B [id number] EX19 [place] PATIENT Selected Encounter This section includes the information on record at [place] for the Encounter. Date/Time Encounter Type Encounter Description Reason Provider Source Jun 16, 2024 08:30 AM HEARING AID FITTING/CHECKIN G AUDIOLOGY ICD-10-CM Z46.1 Encounter for fitting and adjustment of hearing aid OPAL DIETZ Encounter Template Text not used by [facility] Assessments - Encounter Diagnoses This section includes the primary and secondary diagnoses documented for the Encounter. Date/Time Primary/Secondary Diagnosis Diagnosis Name Provider Source Jun 16, 2024 08:47 AM PRIMARY Encounter for fitting and adjustment of hearing aid OPAL DIETZ [facility] Jun 16, 2024 08:47 AM SECONDARY Sensorineural hearing loss, bilateral OPAL DIETZ [facility] Plan of Treatment: Future Appointments (+ 6 months) and Future Tests (+/- 45 days) The Plan of Treatment section includes future care activities for the patient from all [place] treatmentfacilities. This section includes future appointments and future orders which are active, pending or scheduled. Future Appointments This section includes appointments that were scheduled to occur 6 months from the date of the Encounter, up to a maximum of 20 appointments. The data comes from all [place] treatment facilities. Appointment Date/Time Appointment Type Appointme nt Facility Name Aug 05, 2024 08:30 AM AMBULATORY - MEDICINE [facility] Social History: Smoking Status (Most current) and Tobacco Use (All prior to encounter date) This section includes the most current, and the historical, smoking and tobacco- related health factors from the [place] facility where the Encounter took place. Current Smoking Status This section includes the most current smoking, or tobacco-related health factor, from the [place] facility where the Encounter took place. Date/Time Current Smoking Status Comment Facil ity Jun 16, 2023 10:13 AM [place]-TOBACCO FORMER USER [facility] Tobacco Use History This section includes a history of the smoking, or tobacco-related health factors, that were collected on or before the date of the Encounter. The data comes from the [place] facility where the Encounter took place. Date/Time Smoking Status/Tobacco Use Comment F acility Jun 16, 2023 10:13 AM [place]-TOBACCO QUIT 15 YRS OR MORE [facility] Encounter Notes: All associated encounter notes This section contains the clinical notes associated to the Encounter. Date/Time Encounter Note(s) Provider Source Jun 16, 2024 07:53 AM AUDIOLOGY E & M NO TE: [facility] TITLE: AUDIOLOGY CLINIC STANDARD TITLE: AUDIOLOGY E & M NOTE DATE OF NOTE: JUN 16, 2024@07:53 ENTRY DATE: JUN 16, 2024@07:53:36 AUTHOR: OPAL DIETZ EXP COSIGNER: URGENCY: STATUS: COMPLETED Jasper has a history of bilateral sensorineural hearing loss. He was seen on 06-16-24 for hearing aid follow up regarding his Oticon CAROL ANN Rs. He reports the right aid is not working and the left has a retention line not facing the right way. He asks how to shut them down. The initial check reveals the left sounds fine, the right is . The wax guard was clogged- once replaced, the sound check is positive. Domes and wax guards were replaced on both aids and the left retention line was installed correctly. Both hearing aids were connected to [employer] and a firmware update was completed. Counseled on the shutdown feature. Jasper will contact the clinic as needed. Reynaldo ordered today per request. /neli/ Cipriano ROBERSON, [facility]-A STAFF CREDIT OR LOANS OFFICER Signed: 06/16/2024 08:56 OPAL DIETZ [place] [facility]
--- OUTSIDE RECORDS SUMMARY | 2024-11-24 18:05 | XMS_ITS | Continuity of Care Document ---
Author Name [facility] Organization [facility] Care Team Providers Care Preforms Laminator Name Role Phone [facility] Unavailable Unavailable Problems Combined list of problems from Department of Defense and Veterans Affairs facilities. It does not include entries that were removed or entered in error. 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, unspecified ear Active Diagnosis [facility] Diagnosis: ICD-10-CM Z46.1 Encounter for fitting and adjustment of hearing aid Active Diagnosis [facility] Diagnosis: ICD-10-CM H25.813 Combined forms of age-related cataract, bilateral Active Diagnosis [facility] Diagnosis: ICD-10-CM H90.3 Sensorineural hearing loss, bilateral Active Diagnosis [facility] Diagnosis: ICD-10-CM G31.84 Mild cognitive impairment of uncertain or unknown etiology Active Diagnosis [facility] Diagnosis: ICD-10-CM R41.81 Age-related cognitive decline Active Diagnosis [facility] Diagnosis: ICD-10-CM 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 Medication Details Route Status Patient Instructions Prescription Expires Prescription Number Last Dispense Date Ordering Provider Order Date Order Qty Source LEVOTHYROXI NE NA (SYNTHROID) TAB TAKE BY MOUTH EVERY MORNING 30 MINUTES BEFORE BREAKFAS T ORAL ACTIVE YASMIN HENLEY VALORIE 2022 [facility] [place] LORATADINE 10MG TAB TAKE ONE TABLET BY MOUTH ONCE DAILY ORAL ACTIVE YASMIN HENLEY VKRISTIE VALORIE 2022 [facility] [place] MULTIVIT/OP HTH AREDS2/LUTE IN/ZEAXANTH IN CAP/TAB TAKE 1 CAPSULE BY MOUTH TWICE DAILY FOR VITAMIN SUPPLEME NTATION IN THE MORNING AND EVENING, WITH FOOD ORAL ACTIVE 03/09/2025 [id number] Flaca CHUNG 2023 120 [facility] [place] [facility] MULTIVITAMI NS W/MINERALS TAB TAKE ONE TABLET BY MOUTH EVERY MORNING 30 MINUTES BEFORE BREAKFAS T ORAL ACTIVE YASMIN HENLEY VALORIE 2022 [facility] [place] [facility] SILDENAFIL CITRATE 50MG TAB TAKE ONE TABLET BY MOUTH NEEDED ORAL ACTIVE HENLEYYASMIN HARPAL VALORIE 2022 [facility] [place] [facility] Vital Signs Combined list of inpatient and outpatient Vital Signs from Department of Defense and Veterans Affairs, ranging from 12 months to all on record, depending upon the facility. Vital Sign Value Date Comments Source SYSTOLIC BLOOD PRESSURE 154 08/05/20 24 08:32:55 [facility] [place] [facility] DIASTOLIC BLOOD PRESSURE 80 024 08:32:55 [facility] [place] [facility] PULSE OXIMETRY 100 08/05/2024 08:32:55 [facility] [place] [facility] WEIGHT 184.6 08/05/2024 08:32:55 [facility] [place] [facility] BMI 26 kg/m2 08/05/2024 08:32:55 [facility] PAIN 3 08/05/2024 08:32:55 [facility] HEIGHT 71 08/05/2024 08:32:55 [facility] TEMPERATURE 97.9 08/05/2024 08:32:55 [facility] PULSE 59 08/05/2024 08:32:55 [facility] RESPIRATION 16 08/05/2024 08:32:55 [facility] Encounters Combined list of: 1) Encounters from Department of Veterans Affairs facilities going backup to the last 18 months, not all VA inpatient encounters are included; 2) Encounters from the Department of [facility] facilities going backup to 280 months. Location Location Details Encounter Type Encounter Number Reason For Visit Attending Provider ADM Date DC Date Status Disposition Source [facility] Outpatient Encounter [id number] Diagnos is: ICD-10- CM E03.9 Hypothy roidism , unspeci fied SARA HENLEY 06/16 [facility] Outpatient Encounter [id number] 07/28 [facility] OFFICE O/P EST LOW 20-29 MIN [id number] Diagnos is: ICD-10- CM I69.911 Memory deficit followi ng unspeci fied cerebro vascula r disease FEMI SEWELL RD 08/04 [facility] Outpatient Encounter [id number] 09/29 [facility] [place] [place] [id number] Diagnos is: ICD-10- CM H90.3 Sensori neural hearing loss, bilater al [place] DIETZ 10/12 [facility] TST EVAL PH[place] [id number] Diagnos is: ICD-10- CM R41.81 Age-rel ated cogniti ve decline JAKE VERA 10/15 [facility] Outpatient Encounter [id number] 10/15 [facility] TST EVAL PHYS/QHP 1ST [id number] Diagnos is: ICD-10- CM G31.84 Mild cogniti ve impairm ent of uncerta in or unknown etiolog y JAKE VERA 10/30 [facility] Outpatient Encounter [id number] 10/30 [facility] OFF/OP CONSLTJ NEW/EST HI 55 [id number] Diagnos is: ICD-10- CM H90.3 Sensori neural hearing loss, HARRISON Hebert 11/12 [facility] HEARING AID EXAM BOTH EARS [id number] Diagnos is: ICD-10- CM H90.3 Sensori neural hearing loss, MACEY Mcgarry [facility] HEARING SERVICE [id number] Diagnos is: ICD-10- CM Z46.1 Encount er for fitting and adjustm ent of hearing aid MACEY SILVESTRE 12/15 [facility] HEARING AID REPAIR/MOD IFYING [id number] Diagnos is: ICD-10- CM Z46.1 Encount er for fitting and adjustm ent of hearing aid MARIPOSA COPPOLA 01/06 [facility] COMPRE [place]PH EXAM [place] 1/ [id number] Diagnos is: ICD-10- CM H25.813 Combine d forms of age-rel ated catarac t, bilater al JULIET,MD PAVEL 03/08 [facility] HEARING AID FITTING/CH ECKING [id number] Diagnos is: ICD-10- CM Z46.1 Encount er for fitting and adjustm ent of hearing aid [place] DIETZ 06/16 [facility] [place] Outpatient Encounter [id number] 07/28 [facility] [place] [facility] OFFICE O/P EST SF 10 MIN [id number] Diagnos is: ICD-10- CM H91.09 Ototoxi c hearing loss, unspeci fied ear FEMI SEWELL RD 08/05 [facility] [place] Outpatient Encounter [id number] 11/24 [facility] [place] Outpatient Encounter [id number] 11/24 [facility] [place] Social History Combined list of available smoking, tobacco, and other social history from Department of Defense and Veterans Affairs facilities. Social History Type Response Date Comment Sourc e Tobacco smoking status [facility] VA-TOBACCO FORMER USER 08/05/2024 [facility] [place] [facility] of [facility] History of tobacco use [place]-TOBACCO FORMER USER 06/16/2023 [facility] Plan of Care List of future care activities from Department of [facility] facilities. Additional future care activities may be listed in the Assessment and Plan section. Date/Time Care Activity Care Activity Detail Facili ty 11/29/2024 AMBULATORY - MEDICINE AMBULATORY - MEDICI NE [facility]
--- OUTSIDE RECORDS SUMMARY | 2024-11-24 18:05 | XMS_ITS ---
Author Name [facility] [facility] [place] Address [address] [place] [address] Care Team Providers Care Retail Office Associate Name Role Phone NATHANIEL SEWELL Primary Care [...] PART A May 22, 2009 PART A [id number] [place] PATIENT MEDICARE (WNR) MEDICARE (M) PART B May 22, 2009 PART B [id number] [place] PATIENT Selected Encounter This section includes the information on record at [place] for the Encounter. Date/Time Encounter Type Encounter Description Reason Pro vider Source Nov 24, 2024 10:22 AM Outpatient Encounter OPTOMETRY IHE Encounter Template Text not used by [...] 29, 2024 09:00 AM AMBULATORY - MEDICINE [facility] Social History: Smoking Status (Most current) and [...] Facil ity Aug 05, 2024 08:30 AM [place] FORMER USER [facility] Tobacco Use History This section includes a history of the smoking, or tobacco-related health factors, that were collected on or before the date of the Encounter. The data comes from the [place] facility where the Encounter took place. Date/Time Smoking Status/Tobacco Use Comment F acility Aug 05, 2024 08:30 AM [place]-TOBACCO QUIT 15 YRS [facility] Jun 16, 2023 10:13 AM [facility] Jun 16, 2023 10:13 AM [place] QUIT 15 YRS OR MORE [facility] Encounter Notes: All associated encounter notes This section contains the clinical notes associated to the Encounter. Date/Time Encounter Note(s) Provider Source Nov 24, 2024 11:20 AM ADDENDUM: LOCAL TITLE: Addendum STANDARD TITLE: ADDENDUM DATE OF NOTE: NOV 24, 2024@11:20:15 ENTRY DATE: NOV 24, 2024@11:20:16 AUTHOR: AMISH CHUNG COSIGNER: URGENCY: STATUS: COMPLETED Returned call now to who is complaining of watery eyes primary low weight and early evening when sitting down to watch TV. He underwent cataract surgery late summer early fall. After further discussion he is agreeable to follow-up for reassessment of symptoms. Offered appointment November 29 at 9 AM as an overbook. He verbalizes understanding of appointment time and date as well as location. Alerting [facility] now to schedule patient for March 11 at 9:00 with me. /neli/ Amish Chung OD CHIEF OF OPTOMETRY Signed: 11/24/2024 11:21 Receipt Acknowledged By: 11/24/2024 13:02 /trupti [place] [facility] 11/24/2024 13:55 /neli/ EFFIE ROWELL [place] DRIVER ========= --- Original Document --- 11/24/24 TELEPHONE NOTE/SPECIALTY CLINIC: [place] called stating he is having issues with his eyes watering and being irritated. He said he notices it more as the day goes on. Veterans phone number on file has been confirmed /neli/ BETH [place] [facility] Signed: 11/24/2024 10:23 Receipt Acknowledged By: 11/24/2024 11:21 /neli/ Amish Chung OD CHIEF OF OPTOMETRY 11/24/2024 ADDENDUM STATUS: COMPLETED has been scheduled for 11/29/2024 at 9 am /trupti [place] [facility] Signed: 11/24/2024 13:03 AMISH CHUNG [facility] [place] [facility] Nov 24, 2024 10:22 AM TELEPHONE ENCOUNGEETA R NOTE: LOCAL TITLE: TELEPHONE NOTE/SPECIALTY CLINIC STANDARD TITLE: TELEPHONE ENCOUNTER NOTE DATE OF NOTE: NOV 24, 2024@10:22 ENTRY DATE: NOV 24, 2024@10:22:39 AUTHOR: BETH HOWARD EXP COSIGNER: URGENCY: STATUS: COMPLETED TELEPHONE NOTE/SPECIALTY CLINIC Has ADDENDA [place] called stating he is having issues with his eyes watering and being irritated. He said he notices it more as the day goes on. Veterans phone number on file has been confirmed /trupti [place] [facility] Signed: 11/24/2024 10:23 Receipt Acknowledged By: 11/24/2024 11:21 /trupti Chung OD CHIEF OF OPTOMETRY 11/24/2024 ADDENDUM STATUS: COMPLETED Returned call now to who is complaining of watery eyes primary low weight and early evening when sitting down to watch TV. He underwent cataract surgery late summer early fall. After further discussion he is agreeable to follow-up for reassessment of symptoms. Offered appointment November 29 at 9 AM as an overbook. He verbalizes understanding of appointment time and date as well as location. Alerting [facility] now to schedule patient for November 29 at 9:00 with me. /neli/ Amish Chung OD CHIEF OF OPTOMETRY Signed: 11/24/2024 11:21 Receipt Acknowledged By: 11/24/2024 13:02 /neli/ BETH [place] * AWAITING SIGNATURE * EFFIE ROWELL 11/24/2024 ADDENDUM STATUS: COMPLETED [place] has been scheduled for 11/29/2024 at 9 am /trupti [place] [facility] Signed: 11/24/2024 13:03 BETH HOWARD [facility]
--- OUTSIDE RECORDS SUMMARY | 2024-11-24 18:05 | XMS_ITS | Encounter Summary ---
Author Organization [employer] Address [address] [place] [address] Care Team Providers Care Protozoology Teacher Name Role Phone Rachael Velasco ASSEMBLY OPERATOR Primary Care Provider +1 [phone] Encounter Details Date Type Department Care Team (Late st Contact Info) Description 09/24/2022 Orders Only [place] [facility] [address] [place] [address] Stephany Calvillo MD [address] [place] [address] Social History Tobacco Use Types Packs/Day Years Used Date Smoking Tobacco: Former Cigarettes Alcohol Use Standard Drinks/Week Comments Yes 0 (1 standard drink = 0.6 oz pur e alcohol) 2 a day Sex and Gender Information Value Date Recorded Sex Assigned at Male 09/02/2022 11:08 AM EST Legal Sex Male 5:34 PM EDT Gender Identity Male 09/02/2022 11:08 AM EST Sexual Orientation Straight 10/26/2023 9: 33 AM EST Occupation Industry Job Start Date Job End Date Not on file Not on file Not on file Not on file COVID-19 Exposure Response Date Recorded In the last 10 days, have yo u been in contact with someone who was confirmed or suspected to have Coronavirus/COVID-19? No / Unsure 09/03/2022 8:58 AM EST documented as of this encounter Plan of Treatment Not on file documented as of this encounter Procedures Procedure Name Priority Date/Time Associated Diagnosis Comments CYCLIC CITRULLINATED PEPTIDE (CCP) AB (IGG) Routine 10/24/2022 11:01 AM EST SED RATE BY MODIFIED WESTERGREN Routine 10/24/2022 11:01 AM EST RHEUMATOID FACTOR Routine 10/24/2022 11: 01 AM EST C-REACTIVE PROTEIN Routine 10/24/2022 11 :01 AM EST CREATINE KINASE, TOTAL Routine 11:01 AM EST COMPREHENSIVE METABOLIC PANEL Routine 10/24/2022 11:01 AM EST LYME DISEASE ANTIBODIES (IGG,IGM), IMMUNOBLOT Routine 10/01/2022 11:14 AM EST CBC AND DIFFERENTIAL - WAM AND NON-WAM Routine 09/16/2022 documented in this encounter Results * Cyclic Citrullinated Peptide (CCP) Antibody (IgG) (10/24/2022 11:01 AM EST) CCP Antibody <1 [facility] Comment: Reference range: 0 to 19 Unit: units (NOTE) ? Negative ? <20 ? Weak positive ?20 - 39 ? Moderate positive ??40 - 59 ? Strong positive ?>59 Test performed by [facility], [address], [place], [place] [address] Testing performed or reported by [facility], a Service of [facility], [address], [place] [address] Ronald Dodd MD, Fashion Consultant Selling [facility]# [id number] 10/24/2022 11:0 1 AM EST 10/24/2022 11:04 AM EST Giulia Justice MD LAB BLOOD ORDERABLES Final Resul t Performing Organization Address [facility]/ZIP Co de Phone Number [facility] [address] [place] [address] * Creatine Kinase, Total (10/24/2022 11:01 AM EST) Pathologist [facility] Total CK 44 (0-310) U/L [facility] Comment: Testing performed or reported by [facility], a Service of [facility], [address] [place] [address] Faby Page MD, Fashion Consultant Selling CLIA# [id number] 10/24/2022 11:0 1 AM EST 10/24/2022 11:04 AM EST Giulia Justice MD LAB BLOOD ORDERABLES Final Resul t Performing Organization Address [facility] Co de Phone Number [facility] [address] [place] [address] * Rheumatoid Factor (10/24/2022 11:01 AM EST) [facility] Rheumatoid Factor <10.0 (<14) IU/ML [facility] Comment: Testing performed or reported by [facility], a Service of [facility], [address] [place] [address] Faby Page MD, Fashion Consultant Selling CLIA# [id number] 10/24/2022 11:0 1 AM EST 10/24/2022 11:04 AM EST Giulia Justice MD LAB BLOOD ORDERABLES Final Resul t Performing Organization Address [facility] Co de Phone Number [facility] [address] [place] [address] * (ABNORMAL) C-reactive Protein (10/24/2022 11:01 AM EST) [facility] C-Reactive Protein 0.8(H) (0-0.5) MG/DL [facility] Comment: Testing performed or reported by [facility], a Service of [facility], [address] [place] [address] Fayb Page MD, Fashion Consultant Selling [facility]# [id number] 10/24/2022 11:0 1 AM EST 10/24/2022 11:04 AM EST us Giulia Justice MD LAB BLOOD ORDERABLES Final Resul t [facility] [address] [place] [address] * Comprehensive Metabolic Panel (10/24/2022 11:01 AM EST) Glucose 94 (70-99) MG/DL [facility] BUN 17 (8-23) MG/DL [facility] Creatinine, Serum 0.8 (0.7-1.2) MG/DL [facility] Sodium 141 (133-145) MMOL/L [facility] Potassium 4.4 (3.6-5.2) MMOL/L [facility] Chloride 105 (98-107) MMOL/L [facility] Bicarbonate 27 (22-29) MMOL/L [facility] Anion Gap 9 (4-17) [facility] Albumin 4.0 (3.4-4.8) GM/DL [facility] Calcium 10.0 (8.6-10.5) MG/DL [facility] Bilirubin, Total 0.2 (0-1.2) MG/DL [facility] Total Protein 6.9 (6.2-8.2) GM/DL [facility] Albumin/Globulin Ratio 1.4 [facility] AST 17 (0-40) U/L [facility] Alkaline Phosphatase 96 (40-129) U/L [facility] ALT (SGPT) 16 (0-41) U/L [facility] eGFR Creatinine 90 ML/MIN/1.7 3 M2 [facility] Comment: Creatinine based estimated glomerular filtration (eGFR) in adults is calculated using the National Kidney Foundation recommended 2020 CKD-EPI equation. Estimates GFR from serum creatinine, age and sex. Testing performed or reported by [facility], a Service of [address] [address] Faby Page MD, Fashion Consultant Selling CLIA# [id number] 10/24/2022 11:0 1 AM EST 10/24/2022 11:04 AM EST Giulia Justice MD LAB BLOOD ORDERABLES Final Resul t Performing Organization Address [facility] Co de Phone Number [facility] [address] [place] [address] * (ABNORMAL) Sed Rate by Modified Westergren (10/24/2022 11:01 AM EST) Sedimentation Rate,Automated 34(H) (0-15) MM/HR [facility] Comment: Testing performed or reported by [facility], a Service of [facility], [address] [place] [address] Faby Page MD, Fashion Consultant Selling [place]# [id number] 10/24/2022 11:0 1 AM EST 10/24/2022 11:04 AM EST Giulia Justice MD LAB BLOOD ORDERABLES Final Resul t Performing Organization Address [facility] Co de Phone Number [facility] [address] [place] [address] * Lyme Disease Antibodies (IgG,??IgM), Immunoblot (10/01/2022 11:14 AM EST) IgG P93 Antibody Absent [facility] Igg P66 Antibody Absent [facility] IgG P58 Antibody Absent [facility] IgG P45 Antibody Absent [facility] IgG P41 Antibody Absent [facility] IgG P39 Antibody Absent [facility] IgG P30 Antibody Absent [facility] IgG P28 Antibody Absent [facility] IgG P23 Antibody Absent [facility] IgG P18 Antibody Absent [facility] Lyme IgG WB Interpretation NEGATIVE [facility] Comment: (NOTE) ?Positive: 5 of the following ?Borrelia-specific bands: ?18,23,28,30,39,41,45,58, ?66, and 93. ?Negative: No bands or banding ?patterns which do not ?meet positive criteria. IgM P41 Antibody Absent [facility] IgM P39 Antibody Absent [facility] IgM P23 Antibody Absent [facility] Lyme IgM WB Interpretation NEGATIVE [facility] Comment: (NOTE) Note: An equivocal or positive EIA result followed by a negative Line Blot result is considered NEGATIVE. An equivocal or positive EIA result followed by a positive Line Blot is considered POSITIVE by the CDC. Positive: 2 of the following bands: 23,39 or 41 Negative: No bands or banding patterns which do not meet positive criteria. Criteria for positivity are those recommended by CDC/ASTPHLD. p23 EQ Osp C, p41 EQ flagellin Note: Sera from individuals with the following may cross react in the Lyme Line Blot assays: other spirochetal diseases (periodontal disease, leptospirosis, relapsing fever, yaws, and pinta); connective autoimmune (Rheumatoid Arthritis and Systemic Lupus Erythematosus and also individuals with Antinuclear Antibody); other infections ([place] Spotted Fever; Karen-Gordon Virus, and Cytomegalovirus). Please Note: Lyme immunoblot alone is not recommended for the diagnosis of Lyme disease. Current guidelines recommend the use of a two-tiered approach to Lyme serology testing to improve the sensitivity and specificity of testing. [facility] offers test code 706108 Lyme Disease Serology with Reflex to aid in the diagnosis of Lyme Disease. Test performed by [facility], [address], [place] [address] Testing performed or reported by [facility], a Service of [facility], [address] [place] [address] Ronald Dodd MD, Fashion Consultant Selling [facility]# [id number] 10/01/2022 11:1 4 AM EST 10/01/2022 11:15 AM EST Rachael PRINCE LAB BLOOD ORDERABLES Deidre l Result [facility] [address] [place] [address] * CBC and differential (09/16/2022) Blood Venous blood specimen / Unknown Stephany Calvillo MD LAB BLOOD ORDERABLES Final Resul t documented in this encounter Visit Diagnoses Not on filedocumented in this encounter Care Teams Protozoology Teacher Relationship Specialty Start Date End Date Rachael Velasco FNP [address] [place] [address] PCP - General Family Medicine 09/03/22 documented as of this encounter
--- OUTSIDE RECORDS SUMMARY | 2024-11-24 18:05 | XMS_ITS | Encounter Summary ---
Author Organization [employer] Address [address] [place] [address] Care Team Providers Care Cash Room Clerk Name Role Phone Rachael Velasco REORDERING CLERK Primary Care Provider [phone] [phone] Encounter Details Date Type Department Care Team ([facility] st Contact Info) Description 11/04/2024 Telephone [place] [facility] [address] [place] [address] Smitha Beltran RN Social History Tobacco Use Types Packs/Day Years [...] encounter Miscellaneous Notes * Telephone Encounter - Kaylah Qiu LPN - 11/05/2024 8:39 AM EST Printed out lab order and MC signed it. I faxed it to [facility] and CONFIRMED with them that they got it.Their lab is open until 12 noon today. Called Ender and he will be going to have that lab drawn this morning. Monitor for blood cx. Result. * Telephone Encounter - Smitha Beltran RN - 11/04/2024 6:26 PM EST Placed call to patient and left message on machine regarding ? issue with labs sent to [facility] on 11/02,per KG. 11/04 18:25. Sending to triage for follow-up Sunday 11/05. documented in this encounter Plan of Treatment Not on file documented as of this encounter Visit Diagnoses Not on filedocumented in this encounter Care Teams Cash Room Clerk Relationship Specialty Start Date End Date Rachael Velasco FNP [address] [place] [address] PCP - General Family Medicine 09/03/22 documented as of this encounter
--- OUTSIDE RECORDS SUMMARY | 2024-11-24 18:05 | XMS_ITS | Encounter Summary ---
Author Organization [employer] Address [address] [place] [address] Care Team Providers Care Video Software Engineer Name Role Phone Rachael Velasco Primary Care Provider +1 [phone] Encounter Details Date Type Department Care Team (Late st Contact Info) Description 10/05/2023 Orders Only [place] [facility] [address] [place] [address] Rachael Velasco FNP [address] [place] [address] Social History Tobacco Use Types Packs/Day Years Used Date Smoking Tobacco: Former Cigarettes Q uit: 1993 Alcohol Use Standard Drinks/Week Comments Yes 0 (1 standard drink = 0.6 oz pur e alcohol) 2 a day Housing Stability Answer Date Recorded What is your housing situation today? I have aravind patel 07/23/[address] you li ve. Do you have problems with any of the following? None of the above 07/23/2023 Food Insecurity Answer Date Recorded Within the past 12 months, y ou worried that your food would run out before you got money to buy more: Never True 07/23/2023 Within the past 12 months,th e food you bought just didn't last and you didn't have enough money to get more: Never True 10/2022 Transportation Answer Date Recorded In the past 12 months, has l ack of transportation kept you from medical appts, meetings, work or from getting things needed for daily living? No 07/23/2023 Utilities Answer Date Recorded In the past 12 months, has t he electric, gas, oil or water company threatened to shut off services in your home? No 07/23/2023 Depression Answer Date Recorded Patient Health Questionnaire-2 Score 0 01/14/2023 Sex and Gender Information Value Date Recorded [...] Procedure Name Priority Date/Time Associated Diagnosis Comments CBC WITH AUTO DIFFERENTIAL Routine 10/02/2023 DIRECT ANTIGLOBULIN TEST (JOY) Routine 10/02/2023 documented in this encounter Results * Direct Antiglobulin Test (JOY) (10/02/2023) Blood Venous blood specimen / Unknown Rachael Velasco PROP WORKER LAB BLOOD ORDERABLES Edit ed Result - Final * CBC auto differential (10/02/2023) Blood Venous blood specimen / Unknown Rachael Velasco [facility] LAB BLOOD ORDERABLES Edit ed Result - Final documented in this encounter Visit Diagnoses Not on filedocumented in this encounter Care Teams Video Software Engineer Relationship Specialty Start Date End Date Rachael Velasco FNP [address] [place] [address] PCP - General Family Medicine 09/03/22 documented as of this encounter
--- OUTSIDE RECORDS SUMMARY | 2024-11-24 18:05 | XMS_ITS | Encounter Summary ---
Author Organization [employer] Address [address] [place] [address] Care Team Providers Care Pulp Tester Name Role Phone Rachael Velasco Primary Care Provider [phone] [phone] Encounter Details Date Type Department Care Team (Late st Contact Info) Description 10/29/2023 Telephone Sunday [facility] [address] [place] [address] Rachael Velasco FNP [address] [place] [address] Social History Tobacco Use Types Packs/Day Years [...] t he electric, gas, oil or water [employer] threatened to shut off services in your [...] on filedocumented in this encounter Care Teams Pulp Tester Relationship Specialty Start Date End Date Rachael Velasco FNP [address] [place] [address] PCP - General Family Medicine 09/03/22 documented as of this encounter
--- OUTSIDE RECORDS SUMMARY | 2024-11-24 18:05 | XMS_ITS | Encounter Summary ---
Author Organization [employer] Address [address] [place] [address] Care Team Providers Care Production Floater Name Role Phone Rachael Velasco Primary Care Provider +1 -[phone] Encounter Details Date Type Department Care Team (Late st Contact Info) Description 10/27/2024 Telephone [place] [facility] [address] [place] [address] Rachael Velasco FNP [address] [place] [address] Social History Tobacco Use Types Packs/Day Years [...] t he electric, gas, oil or water [employer] threatened to shut off services in your [...] encounter Miscellaneous Notes * Telephone Encounter - SURESH Dolan - 10/27/2024 2:14 PM EST Reviewed, will follow-up tomorrow! * Telephone Encounter - Radha Fajardo RN - 10/27/2024 2:00 PM EST Call to [facility] Lab. No recent blood culture drawn. Last was in September. Spoke with patient's , Giulia. Giulia said patient went to [facility] x 2 for lab draw. Despite lab order being faxed to [facility] Lab x 2, pt. was told no lab order received. Lab order was also mailed to pt. which Giulia said was received. Has not gone due to today's inclement weather. Patient has follow up appointment with aRchael Velasco tomorrow at 11:40 am. To KG * Telephone Encounter - Radha Fajardo RN - 10/27/2024 1:59 PM EST ----- Message from Rachael Velasco sent at 10/27/2024 12:47 PM EST ----- Please follow-up on repeat blood culture ----- Message ----- From: Cassi Ruby Sent: 10/25/2024 9:06 AM EST To: SURESH Dolan documented in this encounter Plan of Treatment Not on file documented as of this encounter Visit Diagnoses Not on filedocumented in this encounter Care Teams Production Floater Relationship Specialty Start Date End Date Rachael Velasco FNP [address] [place] [address] PCP - General Family Medicine 09/03/22 documented as of this encounter
--- OUTSIDE RECORDS SUMMARY | 2024-11-24 18:05 | XMS_ITS | Encounter Summary ---
Author Name [facility] Organization [facility] [place] Address [address] [place] [address] Care Team Providers Care Bulking Machine Operator Name Role Phone NATHANIEL SEWELL Primary Care [...] PART A May 22, 2009 PART A [id number] [facility] PATIENT MEDICARE (WNR) MEDICARE ([place]) PART B May 22, 2009 PART B [id number] [place] PATIENT Selected Encounter This section includes the information on record at [place] for the Encounter. Date/Time Encounter Type Encounter Description Reason Provider Source Jan 07, 2024 03:30 PM HEARING AID REPAIR/MODIFYIN G AUDIOLOGY ICD-10-CM Z46.1 Encounter for fitting and adjustment of hearing aid JARRETT COPPOLA Encounter Template Text not used by [place] Assessments - Encounter Diagnoses This section includes the primary and secondary diagnoses documented for the Encounter. Date/Time Primary/Secondary Diagnosis Diagnosis Name Provider Source Jan 07, 2024 03:53 PM PRIMARY Encounter for fitting and adjustment of hearing aid JARRETT COPPOLA [facility] Jan 07, 2024 03:53 PM SECONDARY Sensorineural hearing loss, bilateral JARRETT COPPOLA [facility] Plan of Treatment: Future Appointments (+ 6 months) and Future Tests (+/- 45 days) The Plan of Treatment section includes future care activities for the patient from all [place] [facility] clinic. This section includes future appointments and future orders which are active, pending or scheduled. Future Appointments This section includes appointments that were scheduled to occur 6 months from the date of the Encounter, up to a maximum of 20 appointments. The data comes from all [place] treatment facilities. Appointment Date/Time Appointment Type Appointme nt Facility Name Mar 08, 2024 09:30 AM AMBULATORY - MEDICINE [facility] Jun 16, 2024 08:30 AM AMBULATORY - REHAB MEDICIN E [facility] Social History: Smoking Status (Most current) and Tobacco Use (All prior to encounter date) This section includes the most current, and the historical, smoking and tobacco- related health factors from the [place] facility where the Encounter took place. Current Smoking Status This section includes the most current smoking, or tobacco-related health factor, from the [place] facility where the Encounter took place. Date/Time Current Smoking Status Comment Facil ity Jun 16, 2023 10:13 AM VA-TOBACCO FORMER USER [facility] Tobacco Use History This section includes a history of the smoking, or tobacco-related health factors, that were collected on or before the date of the Encounter. The data comes from the [place] facility where the Encounter took place. Date/Time Smoking Status/Tobacco Use Comment F acility Jun 16, 2023 10:13 AM [place]-TOBAC[place] QUIT 15 YRS OR MORE [facility] Encounter Notes: All associated encounter notes This section contains the clinical notes associated to the Encounter. Date/Time Encounter Note(s) Provider Source Jan 07, 2024 03:49 PM AUDIOLOGY E & M NO TE: [facility] TITLE: AUDIOLOGY CLINIC STANDARD TITLE: AUDIOLOGY E & M NOTE DATE OF NOTE: JAN 07, 2024@15:49 ENTRY DATE: JAN 07, 2024@15:50:01 AUTHOR: JARRETT COPPOLA EXP COSIGNER: URGENCY: STATUS: COMPLETED Dx CODE: Z46.1-Encounter for Fitting/Adjusting Hearing Aid(s); H90.3- Sensorineural Hearing Loss, Bilateral APPOINTMENT TYPE: Hearing Aid Check HISTORY/BACKGROUND: Romi was seen for a hearing aid follow-up appointment, accompanied by his . He was fit on 12/16/23 with Oticon Real 1 miniRITEs. He scheduled today's appointment due to issues changing the domes on the hearing aids. [place] and his reported difficulty changing the domes and noticed that here were two different domes for each hearing aid and they wanted to make sure they were using the right ones. and his were counselled on the asymmetry seen in the [place]'s hearing and this is why the left and right hearing aid have different domes. How to change the domes was demonstrated to the [place] and his and both practiced doing it as well. Both the and his stated they were more confident in changing the domes. PLAN/RECOMMENDATION(S): 1. Follow up as needed. Patient Education Education provided on the following topics: Hearing aids Education provided to: P Response to Education: VU Hunt Patient P Family F Significant Other SO Verbalizes Understanding VU Returns Demonstration RD Performs Independently PI Lacks Comprehension LC Refused Education RE Not Applicable NA /neli/ FAHAD MURILLO, [facility]-A STAFF TRANSPORT ENGINEER Signed: 01/07/2024 15:53 JARRETT COPPOLA [place] [facility] [place] [facility] Jan 07, 2024 12:03 PM AUDIOLOGY NOTE: LOCAL TITLE: AUDIOLOGY STUDENT PROGRESS NOTE STANDARD TITLE: AUDIOLOGY NOTE DATE OF NOTE: JAN 07, 2024@12:03 ENTRY DATE: JAN 07, 2024@12:03:12 AUTHOR: STEFANY REYES COSIGNER: JARRETT COPPOLA URGENCY: STATUS: COMPLETED Dx CODE: Z46.1-Encounter for Fitting/Adjusting Hearing Aid(s); H90.3- Sensorineural Hearing Loss, Bilateral APPOINTMENT TYPE: Hearing Aid Check HISTORY/BACKGROUND: was seen for a hearing aid follow-up appointment, accompanied by his . He was fit on 12/16/23 with Oticon Real 1 miniRITE. He scheduled today's appointment due to issues changing the domes on the hearing aids. [place] and his reported difficulty changing the domes and noticed that there were two different domes for each hearing aid and they wanted to make sure they were using the right ones for each hearing aid. [place] and his were counselled on the asymmetry in the 's hearing and this is why the left and right hearing aid have different domes. How to change the domes was demonstrated to the [place] and his and both practiced doing it as well. Both the [place] and his stated they were more confident in changing the domes. PLAN/RECOMMENDATION(S): 1. Follow up as needed. Patient Education Education provided on the following topics: Hearing aids Education provided to: P Response to Education: VU Hunt Patient P Family F Significant Other SO Verbalizes Understanding VU Returns Demonstration RD Performs Independently PI Lacks Comprehension LC Refused Education RE Not Applicable NA /trupti REYES AUDIOLOGY STUDENT Signed: 01/07/2024 15:56 /neli/ FAHAD MURILLO, [facility]-A STAFF TRANSPORT ENGINEER Cosigned: 01/07/2024 15:59 [facility]ANY REYES [facility]
--- OUTSIDE RECORDS SUMMARY | 2024-11-24 18:05 | XMS_ITS | Encounter Summary ---
Author Organization [employer] Address [address] [facility] [address] [place] [address] Care Team Providers Care Perioperative Manager Name Role Phone Rachael Velasco Primary Care Provider +1 [phone] Encounter Details Date Type Department Care Team (Late st Contact Info) Description 10/06/2023 Orders Only [facility] [address] [place] [address] Rachael Velasco FNP [address] [place] [address] Social History Tobacco Use Types Packs/Day Years [...] Procedure Name Priority Date/Time Associated Diagnosis Comments FREE LIGHT CHAINS (FREE MICHAEL A, FREE LAMBDA) Routine 10/02/2023 documented in this encounter Results * FREE LIGHT CHAINS (FREE KAPPA, FREE LAMBDA) (10/02/2023) Rachael [facility] BLOOD ORDERABLES Edit ed Result - Final documented in this encounter Visit Diagnoses Not on filedocumented in this encounter Care Teams Perioperative Manager Relationship Specialty Start Date End Date Rachael Velasco FNP [address] [place] [address] PCP - General Family Medicine 09/03/22 documented as of this encounter
--- OUTSIDE RECORDS SUMMARY | 2024-11-24 18:06 | XMS_ITS | Encounter Summary ---
Author Organization [employer] Address [address] [facility] [address] [place] [address] Care Team Providers Care Health Service Worker Name Role Phone Rachael Velasco Primary Care Provider +1 [phone] Encounter Details Date Type Department Care Team (Late st Contact Info) Description 10/25/2024 Orders Only [facility] [address] [place] [address] Rachael Velasco FNP [address] [place] [address] Social History Tobacco Use Types Packs/Day Years [...] the past 12 months, has t he [employer], gas, oil or water company threatened to [...] Procedure Name Priority Date/Time Associated Diagnosis Comments BLOOD CULTURE Routine 10/21/2024 9:06 AM EST documented in this encounter Results * Blood culture (10/21/2024 9:06 AM EST) Blood Venous blood specimen / Unknown Rachael [facility] MICROBIOLOGY - GENERA L ORDERABLES Final Result documented in this encounter Visit Diagnoses Not on filedocumented in this encounter Care Teams Health Service Worker Relationship Specialty Start Date End Date Rachael Velasco FNP [address] [place] [address] PCP - General Family Medicine 09/03/22 documented as of this encounter
--- OUTSIDE RECORDS SUMMARY | 2024-11-24 18:06 | XMS_ITS | Encounter Summary ---
Author Organization [employer] Address [address] [facility] [address] [place] [address] Care Team Providers Care Cold Strip Feeder Name Role Phone Rachael Velasco Primary Care Provider +1 [phone] Encounter Details Date Type Department Care Team (Late st Contact Info) Description 10/24/2024 Orders Only [facility] [address] [place] [address] Rachael Velasco FNP [address] [place] [address] Social History Tobacco Use Types Packs/Day Years [...] the past 12 months, has t he [employer], gas, oil or water company threatened to [...] Procedure Name Priority Date/Time Associated Diagnosis Comments COMPREHENSIVE METABOLIC PANEL Routine 10/21/2024 4:27 PM EST documented in this encounter Results * Comprehensive Metabolic Panel (10/21/2024 4:27 PM EST) Blood Venous blood specimen / Unknown Rachael [facility] BLOOD ORDERABLES Deidre l Result documented in this encounter Visit Diagnoses Not on filedocumented in this encounter Care Teams Cold Strip Feeder Relationship Specialty Start Date End Date Rachael Velasco FNP [address] [place] [address] PCP - General Family Medicine 09/03/22 documented as of this encounter
--- OUTSIDE RECORDS SUMMARY | 2024-11-24 18:06 | XMS_ITS | Encounter Summary ---
Author Organization [employer] Address [address] [facility] 7t [place] [address] Care Team Providers Care Edge Cutting Machine Operator Name Role Phone Rachael Velasco Primary Care Provider +1 [phone] Reason for Visit * Reason Onset Date Comments Care Coordination 10/24/2024 Hospital Follow-up 10/24/2024 Encounter Details Date Type Department Care Team ([facility] st Contact Info) Description 10/24/2024 Telephone [facility] MEDICAL [address] [place] [address] Rachael Velasco FNP [address] [place] [address] Care Coordination; Hospital Follow-up Social History Tobacco Use Types Packs/Day Years [...] encounter Miscellaneous Notes * Telephone Encounter - Marguerite Thompson LPN - 10/25/2024 12:07 PM EST Orders emailed to patient. * Telephone Encounter - Edith Becker - 10/25/2024 11:54 AM EST Patient called. Patient attempted to have his lab drawn today and was told no order was received by the lab. I refaxed this this morning and the lab states they still have not received it. Patient would like this mailed to him and or emailed so that he may have it taken care of [email or web address] * Telephone Encounter - Marguerite Thompson LPN - 10/25/2024 9:11 AM EST Lab faxed. Patients notified. * Telephone Encounter - Marguerite Thompson LPN - 10/24/2024 4:42 PM EST Patients reports per call from [facility] lab came back gram + for cocci and a repeat aerobic blood test is recommended. Patient requesting a order be sent to [facility] as he will be in [place] tomorrow am. Labs not in chart but on Mpages. To provider agreeable to lab? To medical records to obtain lab results. * Telephone Encounter - Marguerite Thompson LPN - 10/24/2024 4:40 PM EST Call to patient to discuss recent admission/hospitalization and offer office visit. Date of hospitalization: 10/21/24 Discharge date: 10/22/24 Hospital: [facility] Records on file: yes Discharge diagnosis: incontinence of stool Patient described events as: Patient reports stool incontinence and became worried as this has never happened. Lingering concerns/symptoms for provider: N/A Medication changes: N/A Follow-up scheduled: patient has a appointment 10/28 Counseled on reasons for urgent evaluation while awaiting office visit * Telephone Encounter - Kaylah Qiu LPN - 10/24/2024 3:47 PM EST Await medical records. * Telephone Encounter - Edith Becker - 10/24/2024 3:25 PM EST Patients called. Patient was seen by [facility] er on 10/21 for incontinence Patient had some labs come back positive that the hospital is looking to have drawn again. Please obtain medical records documented in this encounter Plan of Treatment Not on file documented as of this encounter Procedures Procedure Name Priority Date/Time Associated Diagnosis Comments CULTURE, AEROBIC BACTERIA Routine 11/05/2024 Positive blood cultures documented in this encounter Results * Culture, Aerobic Bacteria (11/05/2024) Blood Topography unknown / Unknown us Rachael [facility] MICROBIOLOGY - GENERA L ORDERABLES Final Result [facility] [address] [place] [address], documented in this encounter Visit Diagnoses Diagnosis Positive blood cultures- Primary documented in this encounter Care Teams Edge Cutting Machine Operator Relationship Specialty Start Date End Date Rachael Velasco FNP [address] [place] [address] PCP - General Family Medicine 09/03/22 documented as of this encounter
== END 2024-11-24 14:41 | disposition home or self-care (01) ==
LOC: CF 14:40
DX: Z13.89 Encounter for screening for other disorder (principal)

== ENCOUNTER 2024-11-25 10:55 | Outpatient (AMB) | payer MEDICARE, SELFPAY ==
--- NOTE | 2024-11-25 11:21 | A.SPINEOV_ITS ---
Vital Signs 11/25/24 11:33 Height 5 ft 11 in Weight 171 lb BMI 23.8 Intake Visit Reasons: LBP Intake Note: Mr. Cedillo is here today c/o low back pain. Cadmium Burner Required: No Allergies No Known Allergies Allergy (Verified 11/25/24 11:34) Physical Exam Vital Signs: BMI result Body Mass Index 23.8 Assessment & Plan Assessment & Plan (1) Traumatic compression fracture of lumbar vertebra with routine healing: Code(s): S32.000D - Wedge compression fracture of unspecified lumbar vertebra, subsequent encounter for fracture with routine healing Category: Medical Plan Dear colleague Thank you for referring Ender Cedillo to the office today with a chief complaint of resolving back pain. HPI: This 79-year-old male had a trauma 05/12/2024 where a piece of equipment for the lb hit his right leg after he fell backwards. He fractured the L3 and L4 vertebrae which was treated with kyphoplasty. He recovered well. He has some residual back pain with intense activity. 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 He was told to immediately see a neurosurgeon if he had any form of incontinence. Had 1 episode of bowel incontinence 1 month ago. He denies saddle anesthesia. He denies weakness or numbness of his legs. I explained to the patient that degenerative changes such as spinal stenosis usually do not cause cauda equina syndrome. The most likely cause for this symptom is an acute herniated disc of a traumatic injury. This patient is not suffering from cauda equina syndrome and also relate to him that he should not be worrying about this as his MRI changes are not that severe at all. Thank you for allowing me to participate in your patients care. total time spent was 50 minutes in counseling ,coordination of plan, personal review of imaging, surgical decision making and subsequent plan Liam Estevez MD, PhD Spine Fellowship Trained Neurosurgeon Director, [facility] Coding Level of Care Code New Pt Level 4 (23266) Diagnoses Traumatic compression fracture of lumbar vertebra with routine healing S32.000D
[2024-11-25 11:33] VITALS: BMI 23.8
--- OUTSIDE RECORDS SUMMARY | 2024-11-25 12:36 | XMS_ITS | Encounter Summary ---
Author Organization [employer] Address [address] [facility] [address]t [place] [address] Care Team Providers Care Picking Crew Supervisor Name Role Phone Rachael Velasco AUTOMATIC LUMP MAKING MACHINE TENDER Primary Care Provider [phone] [phone] Encounter Details Date Type Department Care Team ([facility] st Contact Info) Description 11/04/2024 Telephone [facility] MEDICAL [address] [place] [address] Smitha Beltran RN Social History Tobacco Use [...] MC signed it. I faxed it to [facility] and CONFIRMED with them that they got it.Their lab is open until 12 noon today. Called Ender and he will be going to have that lab drawn this morning. Monitor for blood cx. Result. * Telephone Encounter - Smitha Beltran RN - 11/04/2024 6:26 PM EST Placed call to patient and left message on machine regarding ? issue with labs sent to [facility] on 11/02,per KG. 11/04 18:25. Sending to triage for follow-up Sunday 11/05. documented in this encounter Plan of Treatment Not on file documented as of this encounter Visit Diagnoses Not on filedocumented in this encounter Care Teams Picking Crew Supervisor Relationship Specialty Start Date End Date Rachael Velasco FNP [address] [place] [address] PCP - General Family Medicine 09/03/22 documented as of this encounter
--- OUTSIDE RECORDS SUMMARY | 2024-11-25 12:36 | XMS_ITS | Clinical Summary ---
Author Organization [facility] Address [address] [place] [address] Phone Care Team Providers Care Microbiology Lab Manager Name Role Phone Unavailable Primary Care Provider Unavailabl e Encounters Date Type Department Care Team Description 09/16/2024 9:08 AM EST - 09/16/2024 11:59 PM EST Hospital Encounter [facility] MRI [address] [place] [id number] Pain Discharge Disposition: Home or Self [...] Signed Date: 09/20/2024 16:06 ET Workstation ID: [id number] Transcribed By: Self Edit Transcribed Date: 09/20/2024 [...] at L3 with marrow edema throughout the [id number] body. Acute L4 superior endplate compression fracture resulting in osdnihnjkidjp35% height loss. No retropulsion of bone towards [...] Signed Date: 09/20/2024 16:06 ET Workstation ID: [id number] Transcribed By: Self Edit Transcribed Date: 09/20/2024 15:54 ET Zachary Decker MD IMG MRI PROCEDURES Final Result from Last 3 Months
--- OUTSIDE RECORDS SUMMARY | 2024-11-25 12:36 | XMS_ITS | Encounter Summary ---
Author Organization [employer] Address [address] [facility] [address] [place] [address] Care Team Providers Care House Designer Name Role Phone Rachael Velasco Primary Care Provider +1 -[phone] Encounter Details Date Type Department Care Team (Late st Contact Info) Description 10/06/2023 Orders Only [facility] [address] [place] [address] Rachael Velasco FNP [address] [place] [address] Social History Tobacco Use Types Packs/Day Years [...] on filedocumented in this encounter Care Teams House Designer Relationship Specialty Start Date End Date Rachael Velasco FNP [address] [place] [address] PCP - General Family Medicine 09/03/22 documented as of this encounter
--- OUTSIDE RECORDS SUMMARY | 2024-11-25 12:36 | XMS_ITS | Encounter Summary ---
Author Organization [employer] Address [address] [facility] [address] [place] [address] Care Team Providers Care Bag Sorter Name Role Phone Rachael Velasco Primary Care Provider +1 -[phone] Encounter Details Date Type Department Care Team (Late st Contact Info) Description 10/05/2023 Orders Only [place] [facility] [address] [place] [address] Rachael Velasco FNP [address] [place] [address] Social History Tobacco Use Types Packs/Day Years [...] Venous blood specimen / Unknown Rachael Velasco [employer] [facility] BLOOD ORDERABLES Edit ed Result - Final * CBC auto differential (10/02/2023) Blood Venous blood specimen / Unknown Rachael Velasco [facility] BLOOD ORDERABLES Edit ed Result - Final documented in this encounter Visit Diagnoses Not on filedocumented in this encounter Care Teams Bag Sorter Relationship Specialty Start Date End Date Rachael Velasco FNP [address] [place] [address] PCP - General Family Medicine 09/03/22 documented as of this encounter
--- OUTSIDE RECORDS SUMMARY | 2024-11-25 12:36 | XMS_ITS | Encounter Summary ---
Author Organization [employer] Address [address] [facility] [address] [place] [address] Care Team Providers Care Medical Sales Representative Name Role Phone Rachael Velasco Primary Care Provider +1 -[phone] Encounter Details Date Type Department Care Team (Late st Contact Info) Description 11/23/2024 Orders Only [place] [facility] [address] [place] [address] Rachael Velasco FNP [address] [place] [address] Social History Tobacco Use Types Packs/Day Years [...] the past 12 months, has t he [employer], gas, oil or water company threatened to [...] on filedocumented in this encounter Care Teams Medical Sales Representative Relationship Specialty Start Date End Date Rachael Velasco FNP [address] [place] [address] PCP - General Family Medicine 09/03/22 documented as of this encounter
--- OUTSIDE RECORDS SUMMARY | 2024-11-25 12:36 | XMS_ITS | Encounter Summary ---
Author Organization [employer] Address [address] [facility] [address] [place] [address] Care Team Providers Care Audiovisual Equipment Operator Name Role Phone Rachael Velasco Primary Care Provider +1 -[phone] Encounter Details Date Type Department Care Team [...] on filedocumented in this encounter Care Teams Audiovisual Equipment Operator Relationship Specialty Start Date End Date Rachael Velasco FNP [address] [place] [address] PCP - General Family Medicine 09/03/22 documented as of this encounter
--- OUTSIDE RECORDS SUMMARY | 2024-11-25 12:36 | XMS_ITS | Encounter Summary ---
Author Organization [employer] Address [address] [facility] 7t [place] [address] Care Team Providers Care Eyewear Manufacturing Supervisor Name Role Phone Rachael Velasco RADIOLOGIC ELECTRONIC SPECIALIST Primary Care Provider [phone] Encounter Details Date Type Department Care Team (Late st Contact Info) Description 09/24/2022 Orders Only [place] [address] [place] [address] Stephany Calvillo MD [address] [place] [address] Social History Tobacco Use Types Packs/Day Years [...] (10/24/2022 11:01 AM EST) CCP Antibody <1 [facility] Comment: Reference range: 0 to 19 Unit: units (NOTE) ? Negative ? <20 ? Weak positive ?20 - 39 ? Moderate positive ??40 - 59 ? Strong positive ?>59 Test performed by [facility], [address], [place], [place] [address] Testing performed or reported by [facility], a Service of [facility], [address], [place] [address] Ronald Dodd MD, Telegraph Office Manager [facility]# [id number] 10/24/2022 11:0 1 AM EST 10/24/2022 11:04 AM EST Giulia Justice MD LAB BLOOD ORDERABLES Final Resul t Performing Organization Address [facility]/ZIP Co de Phone Number [facility] [address] [place] [address] * Creatine Kinase, Total (10/24/2022 11:01 AM EST) Pathologist [facility] [place] Total CK 44 (0-310) U/L [facility] Comment: Testing performed or reported by [facility], a Service of [facility], [address] [place] [address] Faby Page MD, Telegraph Office Manager CLIA# [id number] 10/24/2022 11:0 1 AM EST 10/24/2022 11:04 AM EST Giulia Justice MD LAB BLOOD ORDERABLES Final Resul t Performing Organization Address [facility] Co de Phone Number [facility] [address] [place] [address] * Rheumatoid Factor (10/24/2022 11:01 AM EST) [facility] Rheumatoid Factor <10.0 (<14) IU/ML [facility] Comment: Testing performed or reported by [facility], a Service of [facility], [address] [place] [address] Faby Page MD, Telegraph Office Manager CLIA# [id number] 10/24/2022 11:0 1 AM EST 10/24/2022 11:04 AM EST Giulia Justice MD LAB BLOOD ORDERABLES Final Resul t Performing Organization Address [facility] Co de Phone Number [facility] [address] [place] [address] * (ABNORMAL) C-reactive Protein (10/24/2022 11:01 AM EST) [facility] C-Reactive Protein 0.8(H) (0-0.5) MG/DL [facility] Comment: Testing performed or reported by [facility], a Service of [facility], [address] [place] [address] Faby Page MD, Telegraph Office Manager [facility]# [id number] 10/24/2022 11:0 1 AM EST 10/24/2022 11:04 AM EST us Giulia Justice MD LAB BLOOD ORDERABLES Final Resul t [facility] [address] [place] [address] * Comprehensive Metabolic Panel (10/24/2022 11:01 AM EST) Glucose 94 (70-99) MG/DL [facility] BUN 17 (8-23) MG/DL [facility] Creatinine, Serum 0.8 (0.7-1.2) MG/DL [facility] Total Protein 6.9 (6.2-8.2) GM/DL [facility] Albumin/Globulin Ratio 1.4 [facility] AST 17 (0-40) U/L [facility] Alkaline Phosphatase 96 (40-129) U/L [facility] ALT (SGPT) 16 (0-41) U/L [facility] eGFR Creatinine 90 ML/MIN/1.7 3 M2 [facility] Comment: Creatinine based estimated glomerular filtration (eGFR) in adults is calculated using the National Kidney Foundation recommended 2020 CKD-EPI equation. Estimates GFR from serum creatinine, age and sex. Testing performed or reported by [facility], a Service of [address] [address] Faby Page MD, Telegraph Office Manager CLIA# [id number] 10/24/2022 11:0 1 AM EST 10/24/2022 11:04 AM EST Giulia Justice MD LAB BLOOD ORDERABLES Final Resul t Performing Organization Address [facility] Co de Phone Number [facility] [address] [place] [address] * (ABNORMAL) Sed Rate by Modified Westergren (10/24/2022 11:01 AM EST) Sedimentation Rate,Automated 34(H) (0-15) MM/HR [facility] Comment: Testing performed or reported by [facility], a Service of [facility], [address] [place] [address] Faby Page MD, Telegraph Office Manager [place]# [id number] 10/24/2022 11:0 1 AM EST 10/24/2022 11:04 AM EST Giulia Justice MD LAB BLOOD ORDERABLES Final Resul t Performing Organization Address [facility] Co de Phone Number [facility] [address] [place] [address] * Lyme Disease Antibodies (IgG,??IgM), Immunoblot (10/01/2022 11:14 AM EST) IgG P93 Antibody Absent ED [facility] Igg P66 Antibody Absent ED [facility] IgG P58 Antibody Absent ED [facility] IgG P45 Antibody Absent ED [facility] IgG P41 Antibody Absent ED [facility] IgG P39 Antibody Absent ED [facility] IgG P30 Antibody Absent ED [facility] IgG P28 Antibody Absent ED [facility] IgG P23 Antibody Absent ED [facility] IgG P18 Antibody Absent ED [facility] Lyme IgG WB Interpretation NEGATIVE [facility] Comment: (NOTE) ?Positive: 5 of the following ?Borrelia-specific bands: ?18,23,28,30,39,41,45,58, ?66, and 93. ?Negative: No bands or banding ?patterns which do not ?meet positive criteria. IgM P41 Antibody Absent [facility] IgM P39 Antibody Absent [facility] IgM P23 Antibody Absent [facility] Lyme IgM WB Interpretation NEGATIVE [facility] Comment: (NOTE) Note: An equivocal or positive [...] also individuals with Antinuclear Antibody); other infections (Navajo Spotted Fever; Karen-Gordon Virus, and Cytomegalovirus). Please Note: Lyme immunoblot alone is not recommended for the diagnosis of Lyme disease. Current guidelines recommend the use of a two-tiered approach to Lyme serology testing to improve the sensitivity and specificity of testing. [facility] offers test code 559874 Lyme Disease Serology with Reflex to aid in the diagnosis of Lyme Disease. Test performed by [facility], [address], [place] [address] Testing performed or reported by [facility], a Service of [facility], [address] [place] [address] Ronald Dodd MD, Telegraph Office Manager [facility]# [id number] 10/01/2022 11:1 4 AM EST 10/01/2022 11:15 AM EST Rachael PRINCE LAB BLOOD ORDERABLES Deidre l Result [facility] [address] [place] [address] * CBC and differential (09/16/2022) Blood Venous blood specimen / Unknown Stephany Calvillo MD LAB BLOOD ORDERABLES Final Resul t documented in this encounter Visit Diagnoses Not on filedocumented in this encounter Care Teams Eyewear Manufacturing Supervisor Relationship Specialty Start Date End Date Rachael Velasco FNP [address] [place] [address] PCP - General Family Medicine 09/03/22 documented as of this encounter
--- OUTSIDE RECORDS SUMMARY | 2024-11-25 12:36 | XMS_ITS | Continuity of Care Document ---
Author Name [facility] Organization [facility] Care Team Providers Care Plate Glass Grinder Name Role Phone [facility] Unavailable Unavailable Problems Combined list of problems from Department of Defense and Veterans Affairs facilities. It does not include entries that were removed or entered in error. Problem Status Onset Date Problem Type Date of Resolution Comments Source Hearing Loss ([facility] [id number]) Active 024 Condition Aug 05, 2024 Entered [...] of uncertain or unknown etiology Active Diagnosis [facility] Diagnosis: ICD-10-CM R41.81 Age-related cognitive decline Active Diagnosis [facility] Diagnosis: ICD-10-CM I69.911 Memory deficit following unspecified [...] T ORAL ACTIVE YASMIN HENLEY VALORIE 2022 [facility] [place] LORATADINE 10MG TAB TAKE ONE TABLET BY MOUTH ONCE DAILY ORAL ACTIVE YASMIN HENLEY VKRISTIE VALORIE 2022 [facility] [place] [facility] MULTIVIT/OP HTH AREDS2/LUTE IN/ZEAXANTH IN CAP/TAB TAKE 1 CAPSULE BY MOUTH TWICE DAILY FOR VITAMIN SUPPLEME NTATION IN THE MORNING AND EVENING, WITH FOOD ORAL ACTIVE 03/09/2025 [id number] Flaca CHUNG 2023 120 [facility] [place] [facility] MULTIVITAMI NS W/MINERALS TAB TAKE ONE TABLET BY MOUTH EVERY MORNING 30 MINUTES BEFORE BREAKFAS T ORAL ACTIVE YASMIN HENLEY VALORIE 2022 [facility] [place] [facility] SILDENAFIL CITRATE 50MG TAB TAKE ONE TABLET BY MOUTH NEEDED ORAL ACTIVE HENLEYYASMIN HARPAL VALORIE 2022 [facility] [place] [facility] Vital Signs Combined list of inpatient and outpatient Vital Signs from Department of Defense and Veterans Affairs, ranging from 12 months to all on record, depending upon the facility. Vital Sign Value Date Comments Source SYSTOLIC BLOOD PRESSURE 154 08/05/20 24 08:32:55 [facility] [place] [facility] DIASTOLIC BLOOD PRESSURE 80 024 08:32:55 [facility] [place] [facility] PULSE OXIMETRY 100 08/05/2024 08:32:55 [facility] [place] [facility] WEIGHT 184.6 08/05/2024 08:32:55 [facility] [place] [facility] BMI 26 kg/m2 08/05/2024 08:32:55 [facility] [place] [facility] PAIN 3 08/05/2024 [...] included; 2) Encounters from the Department of [facility] facilities going backup to 280 months. Location Location Details Encounter Type Encounter Number Reason For Visit Attending Provider ADM Date DC Date Status Disposition Source [facility] Outpatient Encounter [id number] Diagnos is: ICD-10- CM E03.9 Hypothy roidism , unspeci fied SARA HENLEY 06/16 [facility] Outpatient Encounter [id number] 07/28 [facility] OFFICE O/P EST LOW 20-29 MIN 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 FEMI [address] RD 08/04 [facility] Outpatient Encounter [id number] 09/29 [facility] [place] [id number] Diagnos is: ICD-10- CM H90.3 Sensori neural hearing loss, bilater al [place] DIETZ 10/12 [facility] [place] [id number] Diagnos is: ICD-10- CM R41.81 Age-rel ated cogniti ve decline JAKE VERA 10/15 [facility] Outpatient Encounter [id number] 10/15 [facility] TST EVAL PHYS/QHP 1ST [id number] Diagnos is: ICD-10- CM G31.84 Mild cogniti ve impairm ent of uncerta in or unknown etiolog y JAKE VERA 10/30 [facility] Outpatient Encounter [id number] 10/30 [facility] OFF/OP CONSLTJ NEW/[place] HI 55 [id number] Diagnos is: ICD-10- CM H90.3 Sensori neural hearing loss, HARRISON Hebert 11/12 [facility] HEARING AID EXAM BOTH EARS [id number] Diagnos is: ICD-10- CM H90.3 Sensori neural hearing loss, MACEY Mcgarry [facility] HEARING SERVICE [id number] Diagnos is: ICD-10- CM Z46.1 Encount er for fitting and adjustm ent of hearing aid MACEY SILVESTRE 12/15 [facility] HEARING AID REPAIR/MOD IFYING [id number] Diagnos is: ICD-10- CM Z46.1 Encount er for fitting and adjustm ent of hearing aid MARIPOSA COPPOLA 01/06 [facility] COMPRE OPH EXAM NEW PT 1/ [id number] Diagnos is: ICD-10- CM H25.813 Combine d forms of age-rel ated catarac t, bilater al JULIET,[place]EL 03/08 [facility] HEARING AID FITTING/CH ECKING [id number] Diagnos is: ICD-10- CM Z46.1 Encount er for fitting and adjustm ent of hearing aid [place] DIETZ 06/16 [facility] [place] [facility] [place] Outpatient Encounter [id number] 07/28 [facility] [place] [place] OFFICE O/P EST SF 10 MIN [id number] Diagnos is: ICD-10- CM H91.09 Ototoxi c hearing loss, unspeci fied ear FEMI SEWELL RD 08/05 [facility] [place] Outpatient Encounter [id number] 11/24 [facility] [place] [place] Outpatient Encounter [id number] 11/24 [facility] [place] [facility] Social History Combined list of available smoking, tobacco, and other social history from Department of Defense and Veterans Affairs facilities. Social History Type Response Date Comment Sourc e Tobacco smoking status [facility]-TOBACCO FORMER USER 08/05/2024 [facility] [place] [facility] of [facility] OR [facility] 08/05/2024 [facility] History of tobacco use [facility]ACCO FORMER USER 06/16/2023 [facility] Plan of Care List of future care activities from Department of [facility] facilities. Additional future care activities may be listed in the Assessment and Plan section. Date/Time Care Activity Care Activity Detail Facili ty 11/29/2024 AMBULATORY - MEDICINE AMBULATORY - MEDICI NE [facility]
--- OUTSIDE RECORDS SUMMARY | 2024-11-25 12:36 | XMS_ITS | Clinical Summary ---
Author Organization [employer] Address [address] [facility] 7t [place] [address] Care Team Providers Care Brush Filler Hand Name Role Phone Rachael Velasco FRUIT RANCHER Primary Care Provider [phone] Allergies No known active allergies Medications Multiple [...] Department Care Team Description 11/23/2024 Orders Only [facility] Information Management [address] [place] [address] Rachael Velasco FNP 11/04/2024 Telephone [facility] MEDICAL [address] [place] [address] Smitha Beltran, ELIZABETH 11/02/2024 Telephone [facility] [address] [place] [address] Rachael Velasco FNP 10/28/2024 11:40 AM EST Office Visit [facility] [address] [place] [address] Rachael Velasco FNP Closed compression fracture of L3 vertebra, sequela (Primary Dx); Osteopenia of multiple sites 10/27/2024 Telephone [facility] [address] [facility] [place] [address] Rachael Velasco FNP 10/25/2024 Refill [facility] [address] [facility] [place] [address] Rachael Velasco FNP Acquired hypothyroidism 10/25/2024 Orders Only [facility] Information Management [address] [facility] [place] [address] Rachael Velasco FNP 10/24/2024 Orders Only [facility] Information Management [address] [facility] [place] [address] Rachael Velasco FNP 10/24/2024 Telephone [facility] [address] [facility] [place] [address] Rachael Velasco FNP Care Coordination; Hospital Follow-up 09/06/2024 Telephone [facility] [address] [facility] [place] [address] Rachael Velasco FNP Back brace 08/30/[address] [place] [address] Rachael Velasco FNP from Last 3 Months [...] Referral to Physical Therapy (11/17/2024) Rachael Velasco [facility] OUTPATIENT REFERRAL ORDER ELADIO Final Result * Culture, Aerobic Bacteria (11/05/2024) Blood Topography unknown / Unknown Rachael Velasco [facility] LAB MICROBIOLOGY - GENERA L ORDERABLES Final Result [facility] [address] [place] [address], [place] [phone] * Referral to Dermatology (10/25/2024) Result [facility] OUTPATIENT REFERRAL ORDER ELADIO Final Result * MRI LUMBAR SPINE WO CONTRAST (10/22/2024 12:41 PM EST) Anatomical Region Laterality Modality Magnetic Resonan ce [facility] IMG MRI PROCEDURES Final Result * Comprehensive Metabolic Panel (10/21/2024 4:27 PM EST) Blood Venous blood specimen / Unknown Result [facility] LAB BLOOD ORDERABLES Deidre l Result * Blood culture (10/21/2024 9:06 AM EST) Blood Venous blood specimen / Unknown [facility] LAB MICROBIOLOGY - GENERA L ORDERABLES Final Result * BD DEXA Axial (09/27/2024) Anatomical Region Laterality Modality [facility]ED[facility] Final Result * Referral to Vascular Surgery (09/23/2024) [facility] OUTPATIENT REFERRAL ORDER ELADIO Edited Result - Final * (ABNORMAL) Lipid panel (07/01/2023 8:38 AM EDT) [employer] Signature Cholesterol, Total 216(H) (<200) MG/DL [facility] Triglyceride (mg/dL) in Serum/Plasma 100 (<150) MG/DL [facility] HDL Cholesterol 60 (>39) MG/DL [facility] LDL Cholesterol, Calculated 136(H) (0-130) MG/DL [facility] Non HDL Chol. (LDL+VLDL) 156 (<160) MG/DL [facility] Comment: Testing performed or reported by [facility], a Service of [facility], [address] [place] [address] Ronald Dodd MD, Porcelain Buildup Assistant JOHN# [id number] Blood Venous blood specimen / Unknown 07/01/2023 8:38 AM EDT 07/01/2023 8:39 AM EDT Rachael Velasco FRUIT RANCHER LAB BLOOD ORDERABLES Deidre ward Result [facility] [address] [place] [phone] from Last 3 Months or Most Recently Relevant to Health Maintenance Insurance [employer] * Guarantor: Ender Cedillo Account Type Relation to Patient Date of Phone Billing Address Dental Self Care Teams Brush Filler Hand Relationship Specialty Start Date End Date Rachael Velasco FNP [address] [place] [address] PCP - General Family Medicine 09/03/22
--- OUTSIDE RECORDS SUMMARY | 2024-11-25 12:36 | XMS_ITS | Encounter Summary ---
Author Organization [employer] Address [address] [facility] [address] 7[address] [place] [address] Care Team Providers Care Barrel Ribs Solderer Name Role Phone Rachael Velasco Primary Care Provider [phone] Encounter Details Date Type Department Care Team (Late st Contact Info) Description 10/29/2023 Telephone Sunday [facility] MED[facility] [address] [place] [address] Rachael Velasco FNP [address] [place] [address] Social History Tobacco Use Types Packs/Day Years [...] t he electric, gas, oil or water staila technologies threatened to shut off services in your [...] on filedocumented in this encounter Care Teams Barrel Ribs Solderer Relationship Specialty Start Date End Date Rachael Velasco FNP [address] [place] [address] PCP - General Family Medicine 09/03/22 documented as of this encounter
--- OUTSIDE RECORDS SUMMARY | 2024-11-25 12:37 | XMS_ITS | Encounter Summary ---
Author Organization [employer] Address [address] [facility] [address] [place] [address] Care Team Providers Care Men'S Furnishings Salesperson Name Role Phone Rachael Velasco Primary Care Provider [phone] [phone] Reason for Referral * Consultation (Routine) - Pending Review Specialty Diagnoses / Procedures Referred By Contac t Referred To Contact Diagnoses Osteopenia of multiple sites Rachael Velasco FNP [address] [place], [place] Phone: tel: fax: Abilio Weems MD [address] [facility], [address]rd [place] [address] Phone: tel: fax: Referral ID Status Reason Start Date Expiration Date Visits Requested Visits Authorized [id number] Pending Review Specialty Services Required 11/01/2024 11/01/2025 1 1 * Consultation (Routine) - Authorized Specialty Diagnoses / Procedures Referred By Contac t Referred To Contact Neurosurgery Diagnoses Closed compression fracture of L3 vertebra, sequela Rachael Velasco FNP [address] [place], [place] Phone: tel: fax: Liam Estevez [address] Phone: tel: fax: Referral ID Status Reason Start Date Expiration Date Visits Requested Visits Authorized [id number] Authorized Specialty Services Required 10/28/2024 10/28/2025 1 1 * Consultation (Routine) - Closed Specialty Diagnoses / Procedures Referred By Natalie segovia Referred To Contact Physical Therapy Diagnoses Closed compression fracture of L3 vertebra, sequela Rachael Velasco FNP [address] [place] [address] Phone: tel: fax: Raquel [facility] [place] [address] [place] [address] Phone: tel: fax: Referral ID Status Reason Start Date Expiration Date V isits Requested Visits Authorized [id number] Closed Specialty Services Required 10/28/2024 10/28/2025 1 1 Reason for Visit * Reason Comments Follow-up Encounter Details Date Type Department Care Team (Late st Contact Info) Description 10/28/2024 11:40 AM EST Office Visit Sunday [facility] [address] [place] [address] Rachael Velasco FNP [address] [place] [address] Closed compression fracture of L3 vertebra, sequela [...] when worn. - Blood cultures drawn at [facility] to check for blood infection; initial results [...] and lifestyle modifications. - Consult with an manager applied to evaluate the current status of osteopenia [...] * Patient Education Note - Rachael Velasco, [employer]PER[employer] - 10/28/2024 5:01 PM EST Images from the original note were not included. Patient Education Table of Contents Osteopenia To view videos and all your education online visit, [email or web address] or scan this QR code with your [...] hard liquor (44 mL). General instructions Take aklf-adf-lubmnde and prescription medicines only as told by [...] 2018-06-16 Document Updated: 2024-05-24 Document Reviewed: 2024-05-24 [employer] Patient Education ? 2023 [employer] documented in this encounter Plan of [...] sites documented in this encounter Care Teams Men'S Furnishings Salesperson Relationship Specialty Start Date End Date Rachael Velasco FNP [address] [place] [place] [address] PCP - General Family Medicine 09/03/22 documented as of this encounter
--- OUTSIDE RECORDS SUMMARY | 2024-11-25 12:37 | XMS_ITS | Encounter Summary ---
Author Organization [employer] Address [address] [place] [address] Care Team Providers Care Icer Machine Name Role Phone Rachael Velasco Primary Care Provider [phone] [phone] Encounter Details Date Type Department Care Team (Late st Contact Info) Description 11/02/2024 Telephone Sunday [facility] [address] [place] [address] Rachael Velasco FNP [address] [place] [address] Social History Tobacco Use Types Packs/Day Years [...] the past 12 months, has t he [employer], [employer], oil or water [employer] threatened to shut off services in your [...] Jody Jansen Signed 2:20 PM Copy Alyssia ([facility]) called stating patient is with her trying to get blood work done and they are requesting patient's provider's signature on labs in order to move forward called, Culture for Aerobicbacteria, order code: [id number]. Alyssia states she needs the order with the provider's signature faxed over to [facility] - Fax number: [phone]. Alyssia states she would like a call back once the order has been signed and faxed over at phone number: [phone]. Alyssia states she won't be able to get a voicemail left on the number. Thank you! documented in this encounter Plan of Treatment Not on file documented as of this encounter Visit Diagnoses Not on filedocumented in this encounter Care Teams Icer Machine Relationship Specialty Start Date End Date Rachael Velasco FNP [address] [place] [address] PCP - General Family Medicine 09/03/22 documented as of this encounter
--- OUTSIDE RECORDS SUMMARY | 2024-11-25 12:37 | XMS_ITS | Encounter Summary ---
Author Organization [employer] Address [address] [place] [address] Care Team Providers Care Bottom Sprayer Name Role Phone Rachael Velasco Primary Care Provider +1 [phone] Encounter Details Date Type Department Care Team (Late st Contact Info) Description 10/24/2024 Orders Only [facility] [address] [place] [address] Rachael Velasco FNP [address] [place] [address] Social History Tobacco Use Types Packs/Day Years [...] the past 12 months, has t he [employer], gas, oil or water company threatened to [...] on filedocumented in this encounter Care Teams Bottom Sprayer Relationship Specialty Start Date End Date Rachael Velasco FNP [address] [place] [address] PCP - General Family Medicine 09/03/22 documented as of this encounter
--- OUTSIDE RECORDS SUMMARY | 2024-11-25 12:37 | XMS_ITS | Encounter Summary ---
Author Organization [employer] Address [address] [place] [address] Care Team Providers Care Manager Of Compensation Name Role Phone Rachael Velasco Primary Care Provider [phone] Encounter Details Date Type Department Care Team (Late st Contact Info) Description 10/27/2024 Telephone [facility] [address] [place] [address] Rachael Velasco FNP [address] [place] [address] Social History Tobacco Use Types Packs/Day Years [...] t he electric, gas, oil or water [employer] threatened to shut off services in your [...] - 10/27/2024 2:00 PM EST Call to [facility]. No recent blood culture drawn. Last was in September. Spoke with patient's , Giulia. Giulia said patient went to [facility] x 2 for lab draw. Despite lab order being faxed to [facility] x 2, pt. was told no lab order received. Lab order was also mailed to pt. which Giulia said was received. Has not gone due to today's inclement weather. Patient has follow up appointment with Rachael Velasco tomorrow at 11:40 am. To KG [...] on filedocumented in this encounter Care Teams Manager Of Compensation Relationship Specialty Start Date End Date Rachael Velasco FNP [address] [place] [address] PCP - General Family Medicine 09/03/22 documented as of this encounter
--- OUTSIDE RECORDS SUMMARY | 2024-11-25 12:37 | XMS_ITS | Encounter Summary ---
Author Organization [employer] Address [address] [place] [address] Care Team Providers Care Cd Reactor Operator Head Name Role Phone Rachael Velasco Primary Care Provider [phone] [phone] Encounter Details Date Type Department Care Team (Late st Contact Info) Description 10/25/2024 Orders Only [facility] [address] [place] [address] Rachael Velasco FNP [address] [place] [address] Social History Tobacco Use Types Packs/Day Years [...] the past 12 months, has t he [employer], gas, oil or water company threatened to [...] on filedocumented in this encounter Care Teams Cd Reactor Operator Head Relationship Specialty Start Date End Date Rachael Velasco FNP [address] [place] [address] PCP - General Family Medicine 09/03/22 documented as of this encounter
== END 2024-11-25 11:55 | disposition home or self-care (01) ==
PROVIDERS: PCP Nurse Practitioner Family; Visit Provider Neurological Surgery
DX: S32.000D Wedge compression fracture of unspecified lumbar vertebra, subsequent encounter for fracture with routine healing (principal)
CPT/HCPCS: 99204

== ENCOUNTER → 2024-11-25 10:55 | Outpatient (BNVA) | payer MEDICARE, SELFPAY | PROVIDERS: PCP Nurse Practitioner Family; Visit Provider Neurological Surgery | DX: S32.000D Wedge compression fracture of unspecified lumbar vertebra, subsequent encounter for fracture with routine healing (principal); X58.XXXD Exposure to other specified factors, subsequent encounter | CPT/HCPCS: 99202 ==